=== PATIENT | female | born 1955 | race Caucasian/White ===

== ENCOUNTER 2019-01-05 23:43 | Emergency (ER) | payer MEDICARE, OTHER ==
--- OUTSIDE RECORDS SUMMARY | 2019-01-05 23:45 | XMS REPORT | Clinical Summary ---
:1955 Author Organization [facility] Address [address] [place] [address] Care Team Providers Name Role Phone Doug Benson Primary Care Provider Allergies No Known Allergies Medications Medication Sig Dispensed Refills Start Date End Date Status metoprolol tartrate Take 100 mg by 0 Active (LOPRESSOR) 100 mg mouth 2 (two) tablet times a day. olmesartan (BENICAR) 40 Take 40 mg by 0 Active MG tablet mouth daily. rivaroxaban (XARELTO) Take 20 mg by 0 Active 20 mg tablet mouth daily. esomeprazole (NexIUM) Take 40 mg by 0 Active 40 MG capsule mouth daily before breakfast. Active Problems Problem Noted Date Chronic right shoulder pain 12/18/2018 Rotator cuff arthropathy of right shoulder 12/18/2018 Encounters Date Type Specialty Care Team Description 12/27/2018 Prep for Surgery Orthopedic Surgery Daljit Carolina Rotator cuff MD Jose arthropathy of right shoulder (Primary Dx) 12/17/2018 Office Visit Orthopedic Surgery Daljit Carolina Chronic right shoulder pain (Primary Dx); MD Jose Rotator cuff arthropathy of right shoulder after 01/04/2018 Family History Relation Name Status Comments Father Mother Alive Social History Tobacco Use Types Packs/Day Years Used Date Never Smoker Smokeless Tobacco: Never Used Alcohol Use Drinks/Week oz/Week Comments Yes Sex Assigned at Date Recorded Not on file Job Start Date Occupation Industry Not on file Not on file Not on file Travel History Travel Start Travel End No recent travel history available. Last Filed Vital Signs Not on file Plan of Treatment Date Type Specialty Care Team Description 01/09/2019 Pre-Admit Testing Pre-Admission [place], [place] [address] [facility] [address] [place] [address] [phone] 01/16/2019 Hospital Encounter [place] [address] [place] [address] [phone] 01/16/2019 Anesthesia Event General Surgery Holley Dodd, STRATEGIC PLANNING SPECIALIST-C [address] [facility] [address] [place] [address] [phone] 01/16/2019 Surgery General Surgery Ge, Right shoulder Daljit Garcia [place] [address] [place] [address] [phone] 01/29/2019 Office Visit [place] [address] [place] [address] [phone] Health Maintenance Due Date Last Done Comments CERVICAL CANCER SCREENING 1974 BREAST CANCER SCREENING 12/22/2003 COLONOSCOPY SCREENING 12/22/2003 SHINGLES VACCINES (#1) 12/22/2003 INFLUENZA VACCINE 12/06/2018 65+ PNEUMOCOCCAL VACCINE (1 of 2 - PCV13) 2018 Procedures Procedure Name Priority Date/Time Associated Diagnosis Comments XR SHOULDER 2+ VW Routine 12/17/2018 1:17 PM Acute pain of right Results for this RIGHT CDT shoulder procedure are in the results section. after 01/04/2018 Results XR Shoulder 2+ Vw Right (12/17/2018 1:17 PM CDT) Specimen Narrative Performed At Indications: Right shoulder pain [facility] X-rays: Right shoulder 3 views show moderate to advanced rotator cuff arthropathy with high riding humeral head and evidence of wear of the undersurface of the acromion as well as moderate arthritis of the glenohumeral joint. Impression: Right shoulder rotator cuff arthropathy Performing Organization Address City/State/Zipcode Phone Number [facility] [address] [place] [address] after 01/04/2018 Advance Directives For more information, please contact: [phone] Type Date Recorded Patient Livery Car Driver Explanation Advance Directives, 02/12/2016 2:50 PM Living Will and Medical Power of [employer] Developer Advance Directives, 02/12/2016 2:52 PM Living Will and Medical Power of [employer] Developer
--- OUTSIDE RECORDS SUMMARY | 2019-01-05 23:48 | XMS REPORT | Continuity of Care Document ---
:1955 Author Organization [facility] Care Team Providers Name Role Phone [facility] Unavailable Unavailable Problems Problem Status Onset Classification Date Comments Source Date Reported Contusion of right 01/24/20 08/06/2018 [facility] thigh, initial 18 Hospital encounter SEPSIS Active 01/15/20 [facility] Other pulmonary 12/28/19 07/08/2018 [facility] embolism without 18 [facility] acute cor pulmonale SEPTIC SHOULDER Active 02/17/20 [facility] 16 [facility] RIGHT SHOULDER Active 12/03/19 [facility] ROTATOR CUFF TEAR 16 Hospital R10.9 - UNSPECIFIED Active 03/26/20 [facility] ABDOMINAL PAIN 15 [facility] FISH BONE STUCK IN Active 02/01/20 [facility] THROAT 15 Hospital PNEUMONIA Active 04/07/20 [facility] 14 [facility] FEVER, CHILLS, SORE Active 04/07/20 [facility] THROAT, ABD PAIN 14 Hospital DYSPNEA Active 02/08/20 [facility] 14 [facility] Urinary tract 08/06/2018 [facility] infection, site not Hospital specified Acute 08/06/2018 [facility] posthemorrhagic Hospital anemia Essential (primary) 08/06/2018 [facility] hypertension Hospital Chronic obstructive 08/06/2018 [facility] pulmonary disease, Hospital unspecified Chronic pain 08/06/2018 [facility] syndrome Hospital Pain in right thigh 08/06/2018 [facility] Disorder of kidney 08/06/2018 [facility] and ureter, Hospital unspecified Fall on same level 08/06/2018 [facility] from slipping, Hospital tripping and stumbling without subsequent striking against object, initial encounter USP (current) 08/06/2018 [facility] use of Hospital anticoagulants Arthritis Active Problem 09/25/2018 Medical (disorder) Group, [facility], [facility] Chronic obstructive Active Problem 09/25/2018 Medical lung disease Group, (disorder) [facility], [facility] Deep venous Resolved Problem 09/25/2018 Medical thrombosis Group, (disorder) [facility], [facility] Gastroesophageal Active Problem 09/25/2018 Medical reflux disease Group, (disorder) [facility], [facility] Hypertensive Active Problem 09/25/2018 Medical disorder, systemic Group, arterial (disorder) [facility], [facility] Morbid obesity Active Problem 09/25/2018 Medical (disorder) Group, [facility] Pneumonia Resolved Problem 09/25/2018 Medical (disorder) Group, OPID [facility], [facility] Pulmonary embolism Resolved Problem 09/25/2018 Medical (disorder) Group, [facility] Dyspnea on exertion Active Problem 09/25/2018 Medical (finding) Group, OPID [facility], [facility] Sleep apnea Active Problem 09/25/2018 Medical (finding) Group, OPID [facility], [facility] Other nonspecific 07/08/2018 [facility] abnormal finding of [facility] lung field PNEUMONIA, ORGANISM Active [facility] RESPIRATORY ABNORM Active [facility] UNSP ROTATR-CUFF Active [facility] TEAR/RUPTR OF RIGHT Hospital SNEHAL OTHER PULMONARY Active [facility] EMBOLISM WITHOUT Hospital ACUTE C ACUTE EMBOLISM AND Active [facility] THROMBOSIS OF LEFT Hospital TI STAPHYLOCOCCAL Active [facility] ARTHRITIS, RIGHT Hospital SHOULDER M00.111 Active [facility] Medications Medication Details Route Status Patient Ordering Order Source Instructions Provider Date Nitrofurantoin 100 100 mg=1 cap, No Longer MG Oral Capsule PO, BID, start Active 2018 [facility] [Macrobid] day prior to Group procedure, X 3 day, # 6 cap, 0 Refill(s), Pharmacy: [facility] Aspirin 0 Refill(s) Active 2018 [facility] ferrous sulfate 325 mg, PO, Active [facility] 325 MG Oral Tablet BID, # 60 tab, 2018 Hospital [Feosol] 0 Refill(s) cyclobenzaprine 10 10 mg=1 tab, No Longer [facility] mg oral tablet PO, TID, # 15 Active 2018 [facility] tab, 0 Refill(s) Docusate Sodium 100 mg=1 cap, Active [facility] 100 MG Oral PO, BID, # 60 2018 [facility] Capsule [Colace] cap, 0 Refill(s) Docusate Sodium 100 mg, 1 cap, No Longer [facility] 100 MG Oral Route: PO, Drug Active [address] [place] [address] Capsule [Colace] form: CAP, BID, Dosing Weight 130.455, kg, Start date: 01/16/18 21:12:00 CDT, Duration: 30 day, Stop date: 02/15/18 17:00:00 CDTNotes: (Same as: Colace) (Do Not Crush) Protonix 40 mg, 1 tab, No Longer [facility] Route: PO, Drug Active [address] [place] [address] form: ECTAB, Before Dinner, Start date: 01/15/18 16:30:00 CDT, Duration: 30 day, Stop date: 02/13/18 16:30:00 CDTNotes: Tablet should not be chewed or crushed. (Same as: Protonix) Dulera 200 mcg-5 2 inhalation, No Longer [facility] mcg/inh inhalation Route: PO, Drug Active [address] [place] [address] aerosol Form: AERO, Dosing Weight 130.455, kg, BID, Start date: 01/15/18 9:00:00 CDT, Duration: 30 day, Stop date: 02/13/18 17:00:00 CDT Nexium 40 mg, Route: No Longer [facility] PO, Daily, Active [address] [place] [address] Dosing Weight 130.455, kg, Start date: 01/15/18 9:00:00 CDT, Duration: 30 day, Stop date: 02/13/18 9:00:00 CDT Flexeril 10 mg, 1 tab, No Longer [facility] Route: PO, Drug [address] form: TAB, TID, Dosing Weight 130.455, kg, Start date: 01/15/18 9:00:00 CDT, Duration: 30 day, Stop date: 02/13/18 17:00:00 CDTNotes: (Same As: Flexeril) Xarelto 10 mg, 1 tab, Inactive [facility] Route: PO, Drug 2018 Hospital form: TAB, Q12H, Dosing Weight 130.455, kg, Start date: 01/15/18 9:00:00 CDT, Duration: 30 day, Stop date: 02/13/18 21:00:00 CDTNotes: (Same as: Xarelto) NS 1,000 mL 1,000 mL, Rate: No Longer [facility] 75 ml/hr, Active 2018 Hospital Infuse over: 13.3 hr, Route: IV, Dosing Weight 130.455 kg, Total Volume: 1,000, Start date: 01/15/18 8:27:00 CDT, Duration: 30 day, Stop date: 02/14/18 8:26:00 CDT, 2.54, m2 albuterol 2.49 mg, 3 mL, No Longer [facility] Route: NEB, Active 2018 Hospital Drug form: SOLN, RQ6H, Start date: 01/15/18 2:00:00 CDT, Duration: 30 day, Stop date: 02/13/18 20:00:00 CDTNotes: SEE RT DOCUMENTATION (Same as: Proventil) BD Normal Saline 25 mL, Route: No Longer [facility] Flush IV, Drug Form: [facility] 2017 [facility] INJ, PRN, PRN Line Flush, Start date: 01/15/18 1:45:00 CDT, Duration: 30 day, Stop date: 02/14/18 1:44:00 CDTNotes: (Same as: BD Posiflush) Tramadol 100 mg, 2 tab, No Longer [facility] Route: PO, Drug Active 2018 Hospital form: TAB, Q6H, Dosing Weight 130.455, kg, PRN Pain Score 6-10, Start date: 01/15/18 1:41:00 CDT, Duration: 30 day, Stop date: 02/14/18 1:40:00 CDT Pulmicort Respules 0.5 mg, 2 mL, No Longer [facility] Route: NEB, Active [facility] Drug form: SUSP, RQ12H, Start date: 01/14/18 21:20:00 CDT, Duration: 30 day, Stop date: 02/13/18 16:00:00 CDTNotes: (Same As: Pulmicort) cefTRIAXone + 1 gm, Route: No Longer [facility] sterile water 10 IV, [id number], Active [address] [place] [address] mL Start date: 01/14/18 21:00:00 CDT, Duration: 10 doses or times, Stop date: 01/23/18 21:00:00 CDT, ABX Indication: Genital Tract InfectionNotes: (Same As: Rocephin). Use with 100 mL NS and infuse over 30 min MEDICATION WASTE Product Size: 1000 mg Product Wasted: _0__ mg Rocephin 1 gm, Route: Inactive [facility] IVPB, Drug 2018 Hospital form: PDR/INJ, [id number], Dosing Weight 130.455, kg, Start date: 01/14/18 21:00:00 CDT, Duration: 10 day, Stop date: 01/23/18 21:00:00 CDT, ABX Indication: Genital Tract Infection Acetaminophen 325 2 tab, Route: No Longer [facility] MG / Hydrocodone PO, Drug Form: Active [address] [place] [address] Bitartrate 7.5 MG TAB, Dosing Oral Tablet [[place] Weight 130.455, 7.5/325] kg, Q6H, PRN Pain Score 7-10, Start date: 01/14/18 20:33:00 CDT, Duration: 30 day, Stop date: 02/13/18 20:32:00 CDTNotes: Same as [place] 325-7.5mg Do not exceed 4gm/day of acetaminophen. Ventolin HFA 90 2.49 mg, 3 mL, No Longer [facility] mcg/inh inhalation Route: NEB, Active 2018 [facility] aerosol with Drug Form: adapter SOLN, Dosing Weight 130.455, kg, RQ4H, PRN Wheezing, Start date: 01/14/18 20:30:00 CDT, Duration: 30 day, Stop date: 02/13/18 20:29:00 CDTNotes: SEE RT DOCUMENTATION (Same as: Proventil) NS + KCL 20mEq/L 1,000 mL, Rate: No Longer [facility] 1000ml (Premix) 100 ml/hr, Active 2018 Hospital 1,000 mL Infuse over: 10 hr, Route: IV, Dosing Weight 130.455 kg, Total Volume: 1,000, Start date: 01/14/18 20:09:00 CDT, Duration: 30 day, Stop date: 02/13/18 20:08:00 CDT, 2.54, [id number]: PREMIX IV - Do Not Alter WASTE: F/P - Sink; E - Municipal Trash [facility] Zithromax Z-Kevin See No Longer [facility] Instructions, Active 2018 Hospital PO 5 day, unkonwn dose, pt does not recall, 0 Refill(s) pneumococcal 0.5 mL, Route: No Longer [facility] capsular IM, Drug Form: Active 2018 [facility] polysaccharide INJ, ONCALL, type 1 vaccine / Start date: pneumococcal 01/14/18 capsular 20:03:43 CDT, polysaccharide Stop date: type 10A vaccine / 02/13/18 pneumococcal 19:58:43 capsular CDTNotes: (Same polysaccharide as: Pneumovax type 11A vaccine / 23) pneumococcal Refrigerate capsular polysaccharide type 12F vaccine / pneumococcal capsular polysacchar oxyCODONE 10 mg See Active [facility] extended release Instructions, 2018 Hospital 20 mg PO TID, 0 Refill(s) oxyCODONE 10 mg 10 mg=1 tab, Active [facility] oral tablet PO, TID, 0 2018 Hospital Refill(s) Acetaminophen 325 2 tab, PO, Q6H, Active [facility] MG / Hydrocodone # 160 tab, 0 2016 Hospital Bitartrate 10 MG Refill(s), Oral Tablet [[place] given to 10/325] patient hydromorphone 8 mg 8 mg=1 tab, PO, Active [facility] oral tablet Q8H, PRN Pain, 2016 Hospital X 7 day, # 90 tab, 0 Refill(s), given to patient [id number] mg 30 mg=3 tab, Active [facility] oral tablet, PO, Q8H, # 160 2016 Hospital extended release tab, 0 Refill(s), given to patient vancomycin 1 g 1 gm, IV, Q12H, Active [facility] intravenous X 90 day, # 1 2016 Hospital injection pkt, 0 Refill(s), other Ceftriaxone 1000 2 gm, IV, Q12H, Active [facility] Injection X 90 day, # 1 2016 Hospital [Rocephin] pkg, 1 Refill(s), other Saline Flush 0.9% 10 mL, Route: No Longer [facility] IVP, Drug Form: Active 2016 Hospital INJ, Dosing Weight 117.727, kg, Q8H, Start date: 02/22/16 16:00:00 CDT, Duration: 30 day, Stop date: 03/23/16 8:00:00 CSTNotes: (Same as: BD Posiflush) Saline Flush 0.9% 10 mL, Route: No Longer [facility] IVP, Drug Form: Active 2015 [facility] INJ, Dosing Weight 117.727, kg, PRN, PRN Line Flush, Start date: 02/22/16 10:41:00 CDT, Duration: 30 day, Stop date: 03/23/16 9:40:00 CSTNotes: (Same as: BD Posiflush) Heparin Lock 100 500 unit, 5 mL, No Longer [facility] units/mL INJ Route: INJ, Active 2015 Hospital solution Drug Form: SOLN, Dosing Weight 117.727, kg, PRN, PRN Other -See Comment, Packed PICC lumens, Start date: 02/22/16 10:41:00 CDT, Duration: 30 day, Stop date: 03/23/16 9:40:00 CSTNotes: (Same as: Heparin Lock Flush) metoprolol 100 mg, 2 tab, No Longer [facility] tartrate Route: PO, Drug Active 2015 Hospital form: TAB, Daily, Dosing Weight 117.727, kg, Start date: 02/21/16 9:00:00 CDT, Duration: 30 day, Stop date: 03/21/16 9:00:00 CSTNotes: (Same as: Lopressor) rivaroxaban 15 mg, 1 tab, No Longer [facility] Route: PO, Drug Active 2015 Hospital form: TAB, BID, Start date: 02/18/16 21:00:00 CDT, Duration: 16 day, Stop date: 03/05/16 9:00:00 CDTNotes: (Same as: Xarelto) Administer with food budesonide-formote 2 inhalation, No Longer [facility] rol 160 mcg-4.5 Route: Active [address] [place] [address] mcg/inh inhalation INHALATION, aerosol with Drug Form: adapter AERO/A, RBID, Start date: 02/18/16 17:39:00 CDT, Duration: 30 day, Stop date: 03/19/16 8:00:00 CSTNotes: (Same as: Symbicort) WASTE: Aerosol - Return to Pharmacy Xarelto 10 mg, Route: Inactive [facility] PO, Drug form: 2015 [facility] TAB, BID, Dosing Weight 117.727, kg, Start date: 02/18/16 17:00:00 CDT, Duration: 30 day, Stop date: 03/19/16 9:00:00 [employer] Protonix 40 mg, 1 tab, No Longer [facility] Route: PO, Drug Active 2015 [facility] form: ECTAB, Before Dinner, Start date: 02/18/16 16:30:00 CDT, Duration: 30 day, Stop date: 03/18/16 16:30:00 CSTNotes: Tablet should not be chewed or crushed. (Same as: Protonix) vancomycin + 1,500 mg, No Longer [facility] sodium chloride Route: IVPB, Active 2015 [facility] 0.9% 250 mL INJ [id number], Start (for IV set) 250 date: 02/18/16 mL 11:00:00 CDT, Duration: 30 day, Stop date: 03/19/16 1:00:00 CSTNotes: TIME CRITICAL MEDICATION (Same As: Vancocin) Infusion rate 2001 mg: infuse over 2.5 hours MEDICATION WASTE Product Size: 1000 mg Product Wasted: 0mg ePHEDrine (ANES) Route: IV, Drug Inactive [facility] form: INJ, 2015 [facility] ONCE, Stop date: 02/18/16 9:09:00 CDT neostigmine (ANES) Route: IV, Drug Inactive [facility] form: INJ, 2015 Hospital ONCE, Stop date: 02/18/16 9:09:00 CDT glycopyrrolate Route: IV, Drug Inactive [facility] (ANES) form: INJ, 2015 Hospital ONCE, Stop date: 02/18/16 9:09:00 CDT dexamethasone Route: IV, Drug Inactive [facility] (ANES) form: INJ, 2015 Hospital ONCE, Stop date: 02/18/16 9:04:00 CDT rocuronium (ANES) Route: IV, Drug Inactive [facility] form: INJ, 2015 Hospital ONCE, Stop date: 02/18/16 9:04:00 CDT ceFAZolin (ANES) Route: IV, Drug Inactive [facility] form: INJ, 2015 Hospital ONCE, Stop date: 02/18/16 9:04:00 CDT acetaminophen Route: IV, Drug Inactive [facility] (ANES) form: , 2015 Hospital ONCE, Stop date: 02/18/16 9:04:00 CDT midazolam (ANES) Route: IV, Drug Inactive [facility] form: SOLN, 2015 Hospital ONCE, Stop date: 02/18/16 9:04:00 CDT propofol (ANES) Route: IV, Drug Inactive [facility] form: INJ, 2015 Hospital ONCE, Stop date: 02/18/16 9:04:00 CDT fentaNYL (ANES) Route: IV, Drug Inactive 02/17/ MH [facility] form: INJ, 2015 Hospital ONCE, Stop date: 02/18/16 9:04:00 CDT hydrochlorothiazid 25 mg, 1 tab, No Longer [facility] e 25 mg oral Route: PO, Drug Active 2015 [facility] tablet form: TAB, Daily, Start date: 02/18/16 9:00:00 CDT, Duration: 30 day, Stop date: 03/18/16 9:00:00 CSTNotes: (Same as: Hydrodiuril) With food. Diovan 320 mg, 2 tab, No Longer [facility] Route: PO, Drug Active 2015 [facility] form: TAB, Daily, Start date: 02/18/16 9:00:00 CDT, Duration: 30 day, Stop date: 03/18/16 9:00:00 CSTNotes: Same as Diovan Docusate Sodium 100 mg, 1 cap, No Longer [facility] 100 MG Oral Route: PO, Drug Active 2015 [facility] Capsule form: CAP, BID, Dosing Weight 117.727, kg, Start date: 02/18/16 9:00:00 CDT, Duration: 30 day, Stop date: 03/18/16 17:00:00 CSTNotes: (Same as: Colace) (Do Not Crush) Nexium 40 mg, Route: No Longer [facility] PO, Daily, Active 2015 [facility] Dosing Weight 117.727, kg, Start date: 02/18/16 9:00:00 CDT, Duration: 30 day, Stop date: 03/18/16 9:00:00 [employer] Hydrochlorothiazid 1 tab, Route: No Longer [facility] e 25 MG / PO, Drug Form: Active 2015 [facility] valsartan 320 MG TAB, Dosing Oral Tablet Weight 117.727, kg, Daily, Start date: 02/18/16 9:00:00 CDT, Duration: 30 day, Stop date: 03/18/16 9:00:00 [employer] Ondansetron 4 mg, 2 mL, No Longer [facility] Route: IVP, Active 2015 [facility] Drug form: INJ, Q6H, Dosing Weight 117.727, kg, PRN Nausea & Vomiting, Start date: 02/18/16 8:59:00 CDT, Duration: 30 day, Stop date: 03/19/16 8:58:00 CSTNotes: (Same as: Zofran) MEDICATION WASTE Product Size: 4 mg Product Wasted: 0 mg Acetaminophen 325 2 tab, Route: No Longer [facility] MG / Hydrocodone PO, Drug Form: Active 2015 [facility] Bitartrate 10 MG TAB, Dosing Oral Tablet Weight 117.727, kg, Q4H, PRN Pain Score 4-6, Start date: 02/18/16 8:59:00 CDT, Duration: 30 day, Stop date: 03/19/16 8:58:00 CSTNotes: Do not exceed 4gm/day of acetaminophen. (Same as: [place] 325/10) Lactated Ringers 1,000 mL, Rate: No Longer [facility] 1,000 mL 75 ml/hr, Active 2015 Hospital Infuse over: 13.3 hr, Route: IV, Dosing Weight 117.727 kg, Total Volume: 1,000, Start date: 02/18/16 8:59:00 CDT, Duration: 30 day, Stop date: 03/19/16 8:58:00 [employer] Albuterol 0.83 2.49 mg, 3 mL, Inactive [facility] MG/ML Inhalant Route: NEB, 2015 [facility] Solution Drug form: SOLN, PRN, Dosing Weight 117.727, kg, PRN Respiratory Protocol, Start date: 02/18/16 8:24:00 CDT, Duration: 30 day, Stop date: 03/19/16 7:23:00 CSTNotes: SEE RT DOCUMENTATION (Same as: Proventil) Ondansetron 4 mg, 2 mL, Inactive [facility] Route: IVP2015 [facility] Drug form: INJ, ONCE, Dosing Weight 117.727, kg, PRN Nausea & Vomiting, Start date: 02/18/16 8:24:00 CDTNotes: (Same as: Zofran) MEDICATION WASTE Product Size: 4 mg Product Wasted: ___ mg Flumazenil 0.2 mg, 2 mL, Inactive [facility] Route: IVP2015 [facility] Drug form: INJ, PRN, Dosing Weight 117.727, kg, PRN Benzodiazepine Reversal, Initial dose, Start date: 02/18/16 8:24:00 CDT, Duration: 30 day, Stop date: 03/19/16 7:23:00 CSTNotes: (Same as: Romazicon) Naloxone 0.4 mg, 1 mL, Inactive [facility] Route: IVP2015 [facility] Drug form: INJ, Q2MIN, Dosing Weight 117.727, kg, PRN Narcotic Reversal, Start date: 02/18/16 8:24:00 CDT, Duration: 8 doses or times, Stop date: Limited # of timesNotes: Same as Narcan Hydromorphone 0.5 mg, 0.5 mL, Inactive [facility] Route: IVP, 2015 Hospital Drug form: INJ, Q5Min, Dosing Weight 117.727, kg, PRN Pain Score 7-10, Start date: 02/18/16 8:24:00 CDT, Duration: 4 doses or times, Stop date: Limited # of timesNotes: Same as: Dilaudid Morphine 2 mg, 1 mL, Inactive [facility] Route: IVP, 2015 Hospital Drug form: INJ, Q5Min, Dosing Weight 117.727, kg, PRN Pain Score 4-6, Start date: 02/18/16 8:24:00 CDT, Duration: 5 doses or times, Stop date: Limited # of timesNotes: (Same as:MORPhine Sulfate) Labetalol 10 mg, 2 mL, Inactive RIAZ Sy Route: IVP, 2015 [facility] Drug form: INJ, Q5Min, Dosing Weight 117.727, kg, PRN Elevated BP, Start date: 02/18/16 8:24:00 CDT, Duration: 5 doses or times, Stop date: Limited # of timesNotes: (Same as: Normodyne, Trandate) Push over 2 minutes Give bolus over 2-3 minutes. Hydralazine 10 mg, 0.5 mL, Inactive [facility] Sy Route: IVP, 2015 [facility] Drug form: INJ, Q20Min, Dosing Weight 117.727, kg, PRN Elevated BP, Start date: 02/18/16 8:24:00 CDT, Duration: 2 doses or times, Stop date: Limited # of timesNotes: (Same as: Apresoline) Push over 5 minutes LR 1000 mL INJ Route: IV, Inactive [facility] (ANES) Total Volume: 2016 Hospital 1,000, Start date: 02/18/16 7:43:00 CDT, Stop date: 02/18/16 8:43:00 CDT Hydromorphone 4 mg, 2 tab, No Longer [facility] Route: PO, Drug Active 2015 Hospital form: TAB, Q8H, Dosing Weight 117.727, kg, Start date: 02/18/16 0:00:00 CDT, Duration: 30 day, Stop date: 03/18/16 16:00:00 CSTNotes: (Same as: Dilaudid) vancomycin + 1,500 mg, No Longer [facility] sodium chloride Route: IVPB, Active 2016 [facility] 0.9% 250 mL INJ [id number], Start (for IV set) 250 date: 02/17/16 mL 21:00:00 CDT, Duration: 30 day, Stop date: 03/17/16 23:00:00 CSTNotes: TIME CRITICAL MEDICATION (Same As: Vancocin) Infusion rate 2001 mg: infuse over 2.5 hours MEDICATION WASTE Product Size: 1500 mg Product Wasted: _0__ mg metoprolol 100 mg, 2 tab, No Longer [facility] tartrate Route: PO, Drug Active 2015 Hospital form: TAB, BID, Dosing Weight 117.727, kg, Start date: 02/17/16 21:00:00 CDT, Duration: 30 day, Stop date: 03/18/16 9:00:00 CSTNotes: (Same as: Lopressor) Vancomycin 1 gm, Route: Inactive [facility] IV, Q12H, 2016 Hospital Dosing Weight 117.727, kg, Priority: NOW, Start date: 02/17/16 19:42:00 CDT, Duration: 30 day, Stop date: 03/18/16 9:00:00 [employer] Ceftriaxone 2 gm, Route: No Longer [facility] IV, Q24H, Active [address] [place] [address] Dosing Weight 117.727, kg, Priority: NOW, Start date: 02/17/16 19:41:00 CDT, Duration: 30 day, Stop date: 03/17/16 19:41:00 CSTNotes: (Same As: Rocephin). Use with 100 mL NS and infuse over 30 min MEDICATION WASTE Product Size: 2000 mg Product Wasted: _0__ mg Oxycontin 30 mg, 3 tab, No Longer [facility] Route: PO, Drug Active 2015 Hospital form: ERTAB, Q8H, Dosing Weight 117.727, kg, Start date: 02/17/16 19:17:00 CDT, Duration: 30 day, Stop date: 03/18/16 16:00:00 CSTNotes: Do not crush or chew. (Same as: OxyContin) Enoxaparin 40 mg, 0.4 mL, No Longer [facility] Route: SUB-Q, Active 2015 [facility] Drug form: INJ, [id number], Dosing Weight 117.727, kg, Consider for obese patients, Start date: 02/17/16 17:00:00 CDT, Duration: 30 day, Stop date: 03/18/16 5:00:00 CSTNotes: (Same as: Lovenox) Dulera 200 mcg-5 2 inhalation, No Longer [facility] mcg/inh inhalation Route: PO, Drug Active 2015 [facility] aerosol Form: AERO, Dosing Weight 117.727, kg, BID, Start date: 02/17/16 17:00:00 CDT, Duration: 30 day, Stop date: 03/18/16 9:00:00 [employer] Zofran 4 mg, 2 mL, No Longer [facility] Route: IVP, [facility] 2015 [facility] Drug form: INJ, Q8H, Dosing Weight 117.727, kg, PRN Nausea, Start date: 02/17/16 16:14:00 CDT, Duration: 30 day, Stop date: 03/18/16 16:13:00 CSTNotes: (Same as: Zofran) MEDICATION WASTE Product Size: 4 mg Product Wasted: _0__ mg Dilaudid 2 mg, 2 mL, No Longer [facility] Route: IVP, [facility] 2015 [facility] Drug form: INJ, Q3H, Dosing Weight 117.727, kg, PRN Pain Score 7-10, Start date: 02/17/16 16:11:00 CDT, Stop date: 03/18/16 16:10:00 CSTNotes: Same as: Dilaudid Ventolin HFA 90 2 puff, Route: No Longer [facility] mcg/inh inhalation INHALER, Drug Active 2015 [facility] aerosol with Form: AERO/A, adapter Dosing Weight 117.727, kg, RQ4H, PRN Wheezing, Start date: 02/17/16 16:09:00 CDT, Duration: 30 day, Stop date: 03/18/16 16:08:00 CSTNotes: Albuterol 90 microgram/inh 8gm HFA WASTE: Aerosol - Return to Pharmacy Same as: Ventolin, Proventil rivaroxaban 10 MG 10 mg=1 tab, Active [facility] Oral Tablet PO, BID, 0 2015 [facility] [Xarelto] Refill(s) Hydromorphone 4 mg, PO, TID, No Longer [facility] 0 Refill(s) Active 2015 [facility] Oxycodone 5 mg, Route: Inactive [facility] NG, Drug form: 2015 [facility] TAB, ONCE, Dosing Weight 117.5, kg, PRN Pain Score 4-6, Priority: NOW, Start date: 12/17/15 10:22:00 CDT, Stop date: 01/16/16 10:21:00 CDT Ativan 1 mg, 0.5 mL, Inactive [facility] Route: IVP, 2015 [facility] Drug form: INJ, ONCE, Dosing Weight 117.5, kg, PRN Anxiety, Start date: 12/17/15 9:34:00 CDTNotes: (Same as: Ativan) ondansetron (ANES) Route: IV, Drug Inactive [facility] form: INJ, 2015 [facility] ONCE, Stop date: 12/17/15 9:24:00 CDT ePHEDrine (ANES) Route: IV, Drug Inactive [facility] form: INJ, 2015 [facility] ONCE, Stop date: 12/17/15 8:41:00 CDT dexamethasone Route: IV, Drug Inactive [facility] (ANES) form: INJ, 2015 [facility] ONCE, Stop date: 12/17/15 8:36:00 CDT propofol (ANES) Route: IV, Drug Inactive [facility] form: INJ, 2015 [facility] ONCE, Stop date: 12/17/15 8:36:00 CDT fentaNYL (ANES) Route: IV, Drug Inactive [facility] form: INJ, 2016 [facility] ONCE, Stop date: 12/17/15 8:36:00 CDT phenylephrine Route: IV, Drug Inactive [facility] (ANES) form: INJ, 2015 [facility] ONCE, Stop date: 12/17/15 8:36:00 CDT succinylcholine Route: IV, Drug Inactive [facility] (ANES) form: INJ, 2016 [facility] ONCE, Stop date: 12/17/15 8:31:00 CDT rocuronium (ANES) Route: IV, Drug Inactive [facility] form: INJ, 2016 [facility] ONCE, Stop date: 12/17/15 8:31:00 CDT ceFAZolin (ANES) Route: IV, Drug Inactive [facility] form: INJ, 2016 Hospital ONCE, Stop date: 12/17/15 8:31:00 CDT Albuterol 0.83 2.49 mg, 3 mL, Inactive [facility] MG/ML Inhalant Route: NEB, 2016 [facility] Drug form: SOLN, PRN, Dosing Weight 117.5, kg, PRN Respiratory Protocol, Start date: 12/17/15 8:09:00 CDT, Duration: 30 day, Stop date: 01/16/16 8:08:00 CDTNotes: SEE RT DOCUMENTATION (Same as: Proventil) Flumazenil 0.2 mg, 2 mL, Inactive [facility] Route: IVP, 2015 [facility] Drug form: INJ, PRN, Dosing Weight 117.5, kg, PRN Benzodiazepine Reversal, Initial dose, Start date: 12/17/15 8:09:00 CDT, Duration: 30 day, Stop date: 01/16/16 8:08:00 CDTNotes: (Same as: Romazicon) Naloxone 0.4 mg, 1 mL, Inactive [facility] Route: IVP2015 [facility] Drug form: INJ, Q2MIN, Dosing Weight 117.5, kg, PRN Narcotic Reversal, Start date: 12/17/15 8:09:00 CDT, Duration: 8 doses or times, Stop date: Limited # of timesNotes: Same as Narcan Ondansetron 4 mg, 2 mL, Inactive [facility] Route: IVP, 2015 Hospital Drug form: INJ, ONCE, Dosing Weight 117.5, kg, PRN Nausea & Vomiting, Start date: 12/17/15 8:09:00 CDTNotes: (Same as: Zofran) MEDICATION WASTE Product Size: 4 mg Product Wasted: _0__ mg Diphenhydramine 12.5 mg, 0.25 Inactive [facility] mL, Route: IVP, 2015 Hospital Drug form: INJ, Q6H, Dosing Weight 117.5, kg, PRN Itching, Start date: 12/17/15 8:09:00 CDT, Duration: 30 day, Stop date: 01/16/16 8:08:00 CDTNotes: (Same as: Benadryl) Labetalol 10 mg, 2 mL, Inactive [facility] Route: IVP, 2015 Hospital Drug form: INJ, Q5Min, Dosing Weight 117.5, kg, PRN Elevated BP, Start date: 12/17/15 8:09:00 CDT, Duration: 5 doses or times, Stop date: Limited # of timesNotes: (Same as: Normodyne, Trandate) Push over 2 minutes Give bolus over 2-3 minutes. Hydralazine 10 mg, 0.5 mL, Inactive [facility] Route: IVP, 2015 Hospital Drug form: INJ, Q20Min, Dosing Weight 117.5, kg, PRN Elevated BP, Start date: 12/17/15 8:09:00 CDT, Duration: 2 doses or times, Stop date: Limited # of timesNotes: (Same as: Apresoline) Push over 5 minutes Morphine 2 mg, 1 mL, Inactive [facility] Route: IVP, 2015 Hospital Drug form: INJ, Q5Min, Dosing Weight 117.5, kg, PRN Pain Score 4-6, Start date: 12/17/15 8:09:00 CDT, Duration: 5 doses or times, Stop date: Limited # of timesNotes: (Same as:MORPhine Sulfate) Hydromorphone 0.5 mg, 0.5 mL, Inactive [facility] Route: IVP, 2015 Hospital Drug form: INJ, Q5Min, Dosing Weight 117.5, kg, PRN Pain Score 7-10, Start date: 12/17/15 8:09:00 CDT, Duration: 4 doses or times, Stop date: Limited # of timesNotes: Same as: Dilaudid acetaminophen Route: IV, Drug Inactive [facility] (ANES) (ANES) form: INJ, 2015 Hospital Start date: 12/17/15 8:04:00 CDT, Stop date: 12/17/15 9:04:00 CDT LR 1000 mL INJ Route: IV, Inactive eKrrie (ANES) Total Volume: [address] [place] [address] 1,000, Start date: 12/17/15 7:36:00 CDT, Stop date: 12/17/15 8:36:00 CDT BD Normal Saline 10 mL, Route: Inactive [facility] Flush IV, Drug Form: [address] [place] [address] INJ, PRN, PRN Line Flush, Start date: 12/17/15 6:00:00 CDT, Duration: 1 day, Stop date: 12/18/15 5:59:00 CDTNotes: (Same as: BD Posiflush) Lidocaine 0.1 mL, Route: Inactive [facility] INTRADERM, [address] [place] [address] Dosing Weight 117.5, kg, ONCALL, Start date: 12/17/15 6:00:00 CDT, Duration: 1 doses or times ceFAZolin 2 gm, 100 mL, Inactive [facility] Route: IVPB, [address] [place] [address] Drug form: INJ, PRE OP, Start date: 12/17/15 6:00:00 CDT, Duration: 1 day, Stop date: 12/18/15 5:59:00 CDTNotes: Same as: Ancef Sodium Chloride 25 mL, Route: Inactive [facility] 0.9% IV IV, Start date: [address] [place] [address] 12/17/15 6:00:00 CDT, Duration: 1 day, Stop date: 12/18/15 5:59:00 CDT, PRN Line Flush Calcium Chloride 1,000 mL, Rate: Inactive [facility] 0.0014 MEQ/ML / 25 ml/hr, [address] [place] [address] Potassium Chloride Infuse over: 40 0.004 MEQ/ML / hr, Route: IV, Sodium Chloride Dosing Weight 0.103 MEQ/ML / 117.5 kg, Total Sodium Lactate Volume: 1,000, 0.028 MEQ/ML Start date: Injectable 12/17/15 Solution 5:58:00 CDT, Duration: 30 day, Stop date: 01/16/16 5:57:00 CDT Ventolin HFA 90 2 puff, Active [facility] mcg/inh inhalation INHALER, Q4H, 2016 Hospital aerosol with PRN wheezing, adapter coughing, or shortness of breath, # 8 gm, 1 Refill(s) 12 HR Oxycodone 30 mg=1 tab, Active [facility] Hydrochloride 30 PO, TID, 0 2016 Hospital MG Extended Refill(s) Release Tablet [Oxycontin] Probiotic Formula 1 cap, PO, Active 12/10[facility] oral capsule Daily, 0 2015 Hospital Refill(s) Hydrochlorothiazid 1 tab, PO, Active 12/10[facility] e 25 MG / Daily, # 30 2016 Hospital valsartan 320 MG tab, 0 Oral Tablet Refill(s) Allergies, Adverse Reactions, Alerts Substance Category Reaction Severity Reaction Status Date Comments Source type Reported Cleocin HCl Assertion Itching, Drug Active [facility] Abdominal allergy Hospital pain No Known Assertion Drug Medication allergy Medical Allergies Group Immunizations No Data Provided for This Section Results Order Name Results Value Reference Date Interpretation Comments Source Range ELECTROLYTE AGAP 10.4 10.0 - 01/17 [facility] S 20.0 Hospital ELECTROLYTE eGFR 89 01/17 Result [facility] Comment: The Hospital eGFR is calculated using the CKD-EPI formula. In most young, healthy individuals the eGFR will be >90 mL/min/1.73m2 . The eGFR declines with age. An eGFR of 60-89 may be normal in some populations, particularly the elderly, for whom the CKD-EPI formula has not been extensively validated. Use of the eGFR is not recommended in the following populations:< br/>
Cassie viduals with unstable creatinine concentration s, including patients and those with serious co-morbid conditions.<b r/>
Patie nts with extremes in muscle mass or diet.

The data above are obtained from the National Kidney Disease Education Program (NKDEP) which additionally recommends that when the eGFR is used in patients with extremes of body mass index for purposes of drug dosing, the eGFR should be multiplied by the estimated BMI. ELECTROLYTE Calcium Lvl 8.3 8.5 - 10.5 01/17 [facility] ELECTROLYTE Creatinine 0.72 0.50 - 01/17 [facility] Lvl 1.40 [facility] ELECTROLYTE Sodium Lvl 137 135 - 145 09/ [facility] ELECTROLYTE Chloride Lvl 105 95 - 109 01/17 [facility] ELECTROLYTE Potassium 4.4 3.5 - 5.1 09 [facility] Lvl [facility] ELECTROLYTE BUN 20 7 - 22 01/17 [facility] ELECTROLYTE Glucose Lvl 103 70 - 99 / [facility] ELECTROLYTE CO2 26 24 - 32 09/ [facility] HEMATOLOGY RDW 14.0 11.5 - 09 [facility] 14.5 [facility] HEMATOLOGY MCHC 34.2 32.0 - 09 [facility] 36.0 [facility] HEMATOLOGY MCH 32.4 27.0 - 09 [facility] 31.0 [facility] HEMATOLOGY Platelet 183 133 - 450 09 [facility] HEMATOLOGY MPV 8.7 7.4 - 10.4 09 [facility] HEMATOLOGY Hct 25.1 36.0 - 09 [facility] 48.0 [facility] HEMATOLOGY MCV 94.9 80.0 - 09 [facility] 98.0 [facility] HEMATOLOGY RBC 2.64 4.20 - 01/17 [facility] 5.40 [facility] HEMATOLOGY Hgb 8.6 12.0 - 01/17 [facility] 16.0 [facility] HEMATOLOGY WBC 7.4 3.7 - 10.4 01/17 [facility] HEMATOLOGY Basophils # 0.1 0.0 - 0.2 01/17 [facility] HEMATOLOGY Eosinophils 0.2 0.0 - 0.5 01/17 [facility] # /2017 [facility] HEMATOLOGY Eosinophils 2.8 0.0 - 4.0 09 [facility] HEMATOLOGY Basophils 1.3 0.0 - 1.0 09 [facility] HEMATOLOGY Monocytes 11.1 2.0 - 12.0 01/17 [facility] HEMATOLOGY Segs 58.1 45.0 - 09 [facility] 75.0 [facility] HEMATOLOGY Lymphocytes 26.7 20.0 - 0912 [facility] 40.0 [facility] HEMATOLOGY Monocytes # 0.8 0.0 - 0.8 09 [facility] HEMATOLOGY Lymphocytes 2.0 1.0 - 5.5 09 [facility] # /2017 Hospital HEMATOLOGY Neutrophils 4.3 1.5 - 8.1 01/17 [facility] # /2017 Hospital BLOOD BANK Antibody Negative 01/16 [facility] RESULTS Scrn (01/16/18 9:34 AM) /2017 Hospital BLOOD BANK ABO/Rh O NEG 01/16 [facility] RESULTS /2017 Hospital CHEM PANEL eGFR 74 01/16 Result Comment: The Hospital eGFR is calculated using the CKD-EPI formula. In most young, healthy individuals the eGFR will be >90 mL/min/1.73m2 . The eGFR declines with age. An eGFR of 60-89 may be normal in some populations, particularly the elderly, for whom the CKD-EPI formula has not been extensively validated. Use of the eGFR is not recommended in the following populations:< br/>
Cassie viduals with unstable creatinine concentration s, including patients and those with serious co-morbid conditions.<b r/>
Patie nts with extremes in muscle mass or diet.

The data above are obtained from the National Kidney Disease Education Program (NKDEP) which additionally recommends that when the eGFR is used in patients with extremes of body mass index for purposes of drug dosing, the eGFR should be multiplied by the estimated BMI. CHEM PANEL CO2 26 24 - 32 01/16 Hospital CHEM PANEL Calcium Lvl 8.5 8.5 - 10.5 01/16 Hospital CHEM PANEL Chloride Lvl 107 95 - 109 01/16 Hospital CHEM PANEL Glucose Lvl 109 70 - 99 01/16 Hospital CHEM PANEL BUN 28 7 - 22 01/16 Hospital CHEM PANEL Potassium 4.0 3.5 - 5.1 01/16 [facility] Lvl /2017 Hospital CHEM PANEL Creatinine 0.84 0.50 - 01/16 [facility] Lvl 1.40 [facility] CHEM PANEL Sodium Lvl 141 135 - 145 01/16 Hospital CHEM PANEL AGAP 12.0 10.0 - 01/16 [facility] 20.0 [facility] HEMATOLOGY MPV 9.0 7.4 - 10.4 01/16 Hospital HEMATOLOGY Platelet 178 133 - 450 01/16 [facility] /2018 Hospital HEMATOLOGY RDW 13.7 11.5 - 09/11 [facility] 14.5 /2018 Hospital HEMATOLOGY Hct 24.8 36.0 - 09/11 [facility] 48.0 /2018 Hospital HEMATOLOGY MCV 94.4 80.0 - 09/11 [facility] 98.0 /2018 Hospital HEMATOLOGY Hgb 8.7 12.0 - 09/11 [facility] 16.0 /2017 Hospital HEMATOLOGY WBC 8.1 3.7 - 10.4 09/11 [facility] /2018 Hospital HEMATOLOGY RBC 2.63 4.20 - 09/11 [facility] 5.40 /2017 Hospital HEMATOLOGY MCH 33.1 27.0 - 09/11 [facility] 31.0 /2017 Hospital HEMATOLOGY MCHC 35.1 32.0 - 09/11 [facility] 36.0 /2018 Hospital HEMATOLOGY Basophils # 0.1 0.0 - 0.2 09/11 [facility] /2018 Hospital HEMATOLOGY Basophils 0.6 0.0 - 1.0 09/11 [facility] /2018 Hospital HEMATOLOGY Neutrophils 5.3 1.5 - 8.1 09/11 [facility] # /2018 Hospital HEMATOLOGY Lymphocytes 1.8 1.0 - 5.5 09/ MH [facility] # /2018 Hospital HEMATOLOGY Monocytes # 0.8 0.0 - 0.8 09/11 [facility] /2018 Hospital HEMATOLOGY Eosinophils 0.1 0.0 - 0.5 09/11 [facility] # /2018 Hospital HEMATOLOGY Segs 65.7 45.0 - 09/11 MH [facility] 75.0 /2017 Hospital HEMATOLOGY Monocytes 10.5 2.0 - 12.0 09/11 [facility] /2018 Hospital HEMATOLOGY Lymphocytes 21.6 20.0 - 09/11 MH [facility] 40.0 2018 Hospital HEMATOLOGY Eosinophils 1.6 0.0 - 4.0 09/11 [facility] /2018 Hospital HEMATOLOGY Hct 26.6 36.0 - 09/10 [facility] 48.0 /2018 Hospital HEMATOLOGY Hgb 9.2 12.0 - 09/10 [facility] 16.0 /2018 Hospital ELECTROLYTE AGAP 10.2 10.0 - 09/10 [facility] S 20.0 Hospital ELECTROLYTE eGFR 39 09/ Result [facility] S /2017 Comment: The Hospital eGFR is calculated using the CKD-EPI formula. In most young, healthy individuals the eGFR will be >90 mL/min/1.73m2 . The eGFR declines with age. An eGFR of 60-89 may be normal in some populations, particularly the elderly, for whom the CKD-EPI formula has not been extensively validated. Use of the eGFR is not recommended in the following populations:< br/>
Cassie viduals with unstable creatinine concentration s, including patients and those with serious co-morbid conditions.<b r/>
Patie nts with extremes in muscle mass or diet.

The data above are obtained from the National Kidney Disease Education Program (NKDEP) which additionally recommends that when the eGFR is used in patients with extremes of body mass index for purposes of drug dosing, the eGFR should be multiplied by the estimated BMI. ELECTROLYTE Glucose Lvl 110 70 - 99 01/15 [facility] S [facility] ELECTROLYTE BUN 42 7 - 22 01/15 [facility] S [facility] ELECTROLYTE Creatinine 1.41 0.50 - 01/15 [facility] S Lvl 1.40 Hospital ELECTROLYTE Sodium Lvl 138 135 - 145 01/15 [facility] ELECTROLYTE CO2 27 24 - 32 01/15 [facility] S [facility] ELECTROLYTE Calcium Lvl 8.5 8.5 - 10.5 01/15 [facility] S [facility] ELECTROLYTE Potassium 4.2 3.5 - 5.1 01/15 [facility] ELECTROLYTE Chloride Lvl 105 95 - 109 01/15 [facility] S [facility] HEMATOLOGY MPV 8.4 7.4 - 10.4 01/15 [facility] HEMATOLOGY Platelet 188 133 - 450 01/15 [facility] HEMATOLOGY RDW 13.9 11.5 - 01/15 [facility] 14.5 [facility] HEMATOLOGY MCV 94.0 80.0 - 01/15 [facility] 98.0 [facility] HEMATOLOGY MCHC 34.6 32.0 - 09 [facility] 36.0 Hospital HEMATOLOGY MCH 32.5 27.0 - 01/15 [facility] 31.0 [facility] HEMATOLOGY WBC 9.4 3.7 - 10.4 01/15 [facility] HEMATOLOGY RBC 2.90 4.20 - 01/15 [facility] 5.40 [facility] HEMATOLOGY Eosinophils 0.1 0.0 - 0.5 09/10 [facility] # /2017 Hospital HEMATOLOGY Monocytes # 0.9 0.0 - 0.8 01/15 [facility] /2017 Hospital HEMATOLOGY Basophils 0.5 0.0 - 1.0 01/15 MH [facility] /2017 Hospital HEMATOLOGY Eosinophils 0.9 0.0 - 4.0 01/15 [facility] /2017 [facility] HEMATOLOGY Monocytes 9.4 2.0 - 12.0 01/15 MH [facility] /2018 Hospital HEMATOLOGY Lymphocytes 1.8 1.0 - 5.5 01/15 [facility] # /2018 Hospital HEMATOLOGY Neutrophils 6.6 1.5 - 8.1 01/15 [facility] # /2017 [facility] HEMATOLOGY Lymphocytes 19.5 20.0 - 01/15 [facility] 40.0 [facility] HEMATOLOGY Segs 69.7 45.0 - 01/15 [facility] 75.0 [facility] HEMATOLOGY PT 18.0 12.0 - 01/15 [facility] 14.7 [facility] HEMATOLOGY INR 1.48 0.85 - 01/15 [facility] 1.17 [facility] URINE AND UA <=1.0 0.1 - 1.0 01/15 [facility] STOOL Urobilinogen mg/dL /2017 [facility] URINE AND UA Color Cecilia Yellow 01/15 [facility] STOOL *ABN* /2017 [facility] (01/14/18 9:00 PM) URINE AND UA Turbidity Marked Clear 01/15 [facility] STOOL *ABN* /2017 [facility] (01/14/18 9:00 PM) URINE AND UA Spec Grav 1.021 <=1.030 01/15 [facility] STOOL /2017 [facility] URINE AND UA Nitrite Negative Negative 01/15 [facility]OOL (01/14/18 9:00 PM) /2017 Hospital URINE AND UA Bili Negative Negative 01/15 [facility] STOOL *NA* /2017 [facility] (01/14/18 9:00 PM) URINE AND UA Blood Negative Negative 01/15 [facility] STOOL (01/14/18 9:00 PM) /2017 Hospital URINE AND UA Glucose Negative Negative 01/15 [facility] STOOL mg/dL mg/dL /2017 Hospital URINE AND UA Ketones Negative Negative 01/15 [facility] STOOL mg/dL mg/dL /2017 Hospital URINE AND UA pH 5.0 5.0 - 8.0 01/15 [facility] STOOL /2017 Hospital URINE AND UA Protein 30 mg/dL Negative 01/15 [facility] STOOL mg/dL /2017 Hospital URINE AND UA Hyal Cast 30 0 - 2 01/15 [facility] STOOL Hospital URINE AND UA Sq Epi Many /LPF Few /LPF 01/15 [facility] STOOL Hospital URINE AND UA WBC 3 0 - 5 01/15 [facility] STOOL /2017 Hospital URINE AND UA RBC 1 0 - 2 01/15 [facility] STOOL Hospital URINE AND UA Leuk Est Negative Negative 01/15 [facility] (01/14/18 9:00 PM) /2017 Hospital URINE AND UA Bacteria Occasional None Seen 01/15 [facility] STOOL /HPF /HPF /2017 Hospital URINE AND UA Mucus Few /LPF None Seen 01/15 [facility] STOOL /LPF /2017 [facility] TOXICOLOGY Vanco Tr 17.5 02/19 [facility] TOXICOLOGY Vanco Tr TND 2200 02/19 [facility] HEMATOLOGY WBC 10.3 3.7 - 10.4 02/18 [facility] HEMATOLOGY Hgb 12.4 12.0 - 02/18 [facility] 16.0 [facility] HEMATOLOGY Hct 36.4 36.0 - 10 [facility] 48.0 [facility] HEMATOLOGY MCV 94.6 80.0 - 02/18 [facility] 98.0 [facility] HEMATOLOGY RBC 3.84 4.20 - 02/18 [facility] 5.40 [facility] HEMATOLOGY MCH 32.1 27.0 - 02/18 [facility] 31.0 [facility] HEMATOLOGY MPV 8.7 7.4 - 10.4 02/18 [facility] HEMATOLOGY MCHC 34.0 32.0 - 02/18 [facility] 36.0 [facility] HEMATOLOGY RDW 14.6 11.5 - 10 [facility] 14.5 [facility] HEMATOLOGY Platelet 230 133 - 450 02/18 [facility] HEMATOLOGY Eosinophils 0.1 0.0 - 0.5 02/18 [facility] # /2015 Hospital HEMATOLOGY Basophils # 0.1 0.0 - 0.2 02/18 [facility] /2015 Hospital HEMATOLOGY Monocytes 10.8 2.0 - 12.0 02/18 [facility] /2015 Hospital HEMATOLOGY Segs 64.4 45.0 - 02/18 [facility] 75.0 Hospital HEMATOLOGY Lymphocytes 22.6 20.0 - 10 [facility] 40.0 /2016 [facility] HEMATOLOGY Eosinophils 1.3 0.0 - 4.0 02/18 [facility] HEMATOLOGY Segs-Bands # 6.6 1.5 - 8.1 02/18 [facility] HEMATOLOGY Lymphocytes 2.3 1.0 - 5.5 02/18 [facility] # /2015 Hospital HEMATOLOGY Monocytes # 1.1 0.0 - 0.8 02/18 Hospital HEMATOLOGY Basophils 0.9 0.0 - 1.0 02/18 Hospital CHEM PANEL Calcium Lvl 8.9 8.5 - 10.5 02/18 Hospital CHEM PANEL AGAP 10.6 10.0 - 02/18 [facility] 20.0 [facility] CHEM PANEL Potassium 3.6 3.5 - 5.1 02/18 [facility] CHEM PANEL CO2 27 24 - 32 02/18 Hospital CHEM PANEL Chloride Lvl 101 95 - 109 02/18 Hospital CHEM PANEL Glucose Lvl 125 70 - 99 02/18 Hospital CHEM PANEL eGFR 96 02/18 Comment: The Hospital eGFR is calculated using the CKD-EPI formula. In most young, healthy individuals the eGFR will be >90 mL/min/1.73m2 . The eGFR declines with age. An eGFR of 60-89 may be normal in some populations, particularly the elderly, for whom the CKD-EPI formula has not been extensively validated. Use of the eGFR is not recommended in the following populations:< br/>
Cassie viduals with unstable creatinine concentration s, including patients and those with serious co-morbid conditions.<b r/>
Patie nts with extremes in muscle mass or diet.

The data above are obtained from the National Kidney Disease Education Program (NKDEP) which additionally recommends that when the eGFR is used in patients with extremes of body mass index for purposes of drug dosing, the eGFR should be multiplied by the estimated BMI. CHEM PANEL Sodium Lvl 135 135 - 145 02/18 Hospital CHEM PANEL Creatinine 0.64 0.50 - 02/18 [facility] Lvl 1.40 [facility] CHEM PANEL BUN 11 7 - 22 02/18 Hospital IMMUNOLOGY C-REACTIVE 40.9 <=2.9 mg/L 02/18 [facility] CHEM PANEL Magnesium 1.6 1.8 - 2.4 02/16 Lvl Hospital CHEM PANEL eGFR 95 02/16 [facility] Comment: The Hospital eGFR is calculated using the CKD-EPI formula. In most young, healthy individuals the eGFR will be >90 mL/min/1.73m2 . The eGFR declines with age. An eGFR of 60-89 may be normal in some populations, particularly the elderly, for whom the CKD-EPI formula has not been extensively validated. Use of the eGFR is not recommended in the following populations:< br/>
Cassie viduals with unstable creatinine concentration s, including patients and those with serious co-morbid conditions.<b r/>
Patie nts with extremes in muscle mass or diet.

The data above are obtained from the National Kidney Disease Education Program (NKDEP) which additionally recommends that when the eGFR is used in patients with extremes of body mass index for purposes of drug dosing, the eGFR should be multiplied by the estimated BMI. CHEM PANEL Bili Total 0.7 0.2 - 1.3 02/16 Hospital CHEM PANEL ALT 82 0 - 65 02/16 Hospital CHEM PANEL Alk Phos 169 39 - 136 02/16 Hospital CHEM PANEL Albumin Lvl 3.2 3.5 - 5.0 02/16 Hospital CHEM PANEL AST 41 0 - 37 02/16 Hospital CHEM PANEL Total 7.1 6.4 - 8.4 02/16 [facility] CHEM PANEL Sodium Lvl 135 135 - 145 02/16 Hospital CHEM PANEL Chloride Lvl 101 95 - 109 02/16 Hospital CHEM PANEL Potassium 3.9 3.5 - 5.1 02/16l Hospital CHEM PANEL CO2 28 24 - 32 02/16 Hospital CHEM PANEL Calcium Lvl 9.0 8.5 - 10.5 02/16 Hospital CHEM PANEL Creatinine 0.67 0.50 - 02/16 [facility] Lvl 1.40 [facility] CHEM PANEL BUN 13 7 - 22 10/ Ker[facility] /2015 Hospital CHEM PANEL Glucose Lvl 119 70 - 99 10 [facility] CHEM PANEL A/G Ratio 0.8 0.7 - 1.6 10/ Ker[facility] /2015 [facility] CHEM PANEL B/C Ratio 19 6 - 25 10/ Ker[facility] /2015 [facility] CHEM PANEL AGAP 9.9 10.0 - 10 [facility] 20.0 Hospital CHEM PANEL Globulin 3.9 2.7 - 4.2 10/ [facility] /2015 Hospital HEMATOLOGY Basophils # 0.1 0.0 - 0.2 10 [facility] HEMATOLOGY Basophils 0.6 0.0 - 1.0 10 [facility] HEMATOLOGY Monocytes 15.1 2.0 - 12.0 02/16 [facility] /2015 Hospital HEMATOLOGY Lymphocytes 15.8 20.0 - 10 [facility] 40.0 [facility] HEMATOLOGY Eosinophils 0.8 0.0 - 4.0 02/16 [facility] HEMATOLOGY Segs 67.7 45.0 - 10 [facility] 75.0 [facility] HEMATOLOGY Lymphocytes 1.6 1.0 - 5.5 02/16 [facility] # /2015 Hospital HEMATOLOGY Segs-Bands # 6.8 1.5 - 8.1 02/16 [facility] /2015 Hospital HEMATOLOGY Monocytes # 1.5 0.0 - 0.8 02/16 [facility] /2015 Hospital HEMATOLOGY Eosinophils 0.1 0.0 - 0.5 02/16 [facility] # /2015 Hospital HEMATOLOGY Hgb 14.5 12.0 - 02/16 [facility] 16.0 [facility] HEMATOLOGY Hct 43.1 36.0 - 10 [facility] 48.0 /2015 Hospital HEMATOLOGY MCH 32.0 27.0 - 10 [facility] 31.0 [facility] HEMATOLOGY MCV 94.9 80.0 - 10 [facility] 98.0 [facility] HEMATOLOGY MCHC 33.7 32.0 - 10 [facility] 36.0 /2015 Hospital HEMATOLOGY MPV 8.6 7.4 - 10.4 10 [facility] HEMATOLOGY RDW 14.6 11.5 - 10 [facility] 14.5 [facility] HEMATOLOGY Platelet 258 133 - 450 10 [facility] HEMATOLOGY RBC 4.54 4.20 - 02/[facility] HEMATOLOGY WBC 10.1 3.7 - 10.4 02/16 [facility] HEMATOLOGY PTT 32.9 22.9 - 02/16 [facility] 35.8 /2015 [facility] Pathology Reports No Data Provided for This Section Diagnostic Reports Report Value Date Source Abdomen/Pelvis wo IV UNENHANCED CT OF THE ABDOMEN AND PELVIS 01/15/2018 [facility] contrast CT CLINICAL INDICATION: - R/O RETROPERITONEAL BLEED, RECENT FALL, ON XARELTO, SEVERE BACK, RIGHT HIP AND RIGHT THIGH PAIN. TECHNIQUE: Unenhanced CT of the abdomen and pelvis was performed with multiplanar reconstructions. The dose length product is 1089 mGy-cm. COMPARISON: CT abdomen and pelvis 03/31/2015. FINDINGS: There is no acute osseous fracture or dislocation. There are chronic surgical changes of laminectomy and posterior fusion at L4-L5. There are intervertebral cages from L4-S1. There is an incompletely imaged 4.9 x 10.5 x 13 cm hematoma within the right lateral hip musculature overlying the greater trochanter and extending into the lateral proximal thigh musculature. There is no intra-abdominal or retroperitoneal hemorrhage. There is a small fat filled, noninflamed right inguinal hernia. There is a mild burden of atherosclerotic calcification of the aorta. There is no aortic aneurysm. The inferior vena cava appears normal. The imaged heart and lung bases reveal no acute process. There is no acute hepatic process. The gallbladder is absent. The pancreas reveals no acute process. The spleen reveals no acute process. The adrenal glands reveal no mass or acute process. There is symmetric stable mild to moderate perinephric fat stranding. There is no hydronephrosis or evidence of renal obstruction. There are stable phleboliths adjacent to the right ureter. There are st able phleboliths in the pelvis. The urinary bladder appears normal. The uterus is absent. There are benign phleboliths in the pelvis. There is no intra-abdominal free fluid. There is no intra-abdominal free gas. There is no lymphadenopathy. There is a moderately heavy burden of nonacute colonic diverticulosis, greatest in the descending and sigmoid colon segment. There is no bowel obstruction or bowel inflammation. A small vestigial append ix is present and reveals no evidence of inflammation. IMPRESSION: 1. There is an incompletely imaged 4.9 x 10.5 x 13 cm hematoma within the right lateral hip musculature overlying the greater trochanter and extending into the lateral proximal thigh musculature. There is no intra-abdominal or retroperitoneal hemorrhage. 2. There is no acute intra-abdominal process. 3. There is a moderately heavy burden of nonacute colonic diverticulosis. SL: [id number] Femur series DX Procedure: Right femur radiographs. 01/14/2018 [facility] Clinical Indication: Distal right femur pain post fall. Comparison: None. FINDINGS: Radiographs of the right femur, 4 views, demonstrate degenerative change involving the right hip and right knee including marginal osteophyte formation. No acute displaced fracture or dislocation is identified. IMPRESSION: 1. Degenerative change. SL:[id number] Chest Pulmonary CT ANGIOGRAPHY CHEST, 12/19/2017 [facility] Embolism CTA INDICATION: History of pulmonary embolism. Shortness of breath and chest pain. Chronic obstructive pulmonary disease. COMPARISON: 04/07/2014 TECHNIQUE: 100 mL of Isovue-300 iodinated contrast was administered intravenously by rapid injection, with further multislice axial sections acquired in the pulmonary arterial phase from the thoracic i nlet to the upper abdomen. Coronal and 3-D reformatted images were obtained. CT imaging was performed with exposure control parameters to reduce radiation dose. LIMITATIONS: Non-gated technique limits cardiac detail. FINDINGS: Mediastinal windows: The heart is borderline size. There is no pericardial or pleural effusion. The thoracic aorta is normal caliber with mild atherosclerotic calcifications. There is no mediastinal, hilar or axillary lymphadenopathy. No CT evidence for pulmonary embolism. Lungs windows: Right middle lobe calcified granuloma. Minimal areas of scarring. No acute consolidation or mass. 3 mm nodule right lower lobe image 47 is unchanged. 2 mm nodule left upper lobe image 12 likely stable. There is a few tiny 2 -- 3 mm nodules in the right upper lobe best seen on the coronal reconstructed images. There is resolution of previously identified right upper lobe infiltrate and nodular foci. Musculoskeletal: No acute bone or soft tissue abnormalities. Upper abdomen: Cystectomy. The common bile duct is dilated similar previous study likely postcholecystectomy ectasia.. Additional comments: None. IMPRESSION: 1. No CT evidence for pulmonary embolism. 2. Resolution of previously identified right upper lobe infiltrate. 3. A few tiny bilateral pulmonary nodules stable from previous study favoring benign etiology. SL: [id number] Breast Complete Uni US - BREAST COMPLETE UNI US/L 11/16/2016 [facility] ULTRASOUND OF LEFT BREAST AND LEFT AXILLA: 11/16/2016 CLINICAL: Left Breast Lump/Breast Lump 60-year-old female presents with a palpable abnormality in the left breast for one year. Comparison is made to exam dated: 11/16/2016 mammogram - [facility] German Sy. Color flow and real-time ultrasound of the left breast and axilla were performed. Edwards scale images of the real-time examination were reviewed. All 4 quadrants and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
--- OUTSIDE RECORDS SUMMARY | 2019-01-05 23:48 | XMS REPORT | Summary of Care ---
:1955 Author Organization [facility] Address [address] [place] [address]- Encounter HQ Дмитрий(FIN) [id number] Date(s): 01/31/15 - 01/31/15 [facility] [address] [place] [address]- Discharge Disposition: Not Seen Attending Physician: Lorie Marrufo MD Vital Signs Most recent to oldest [Reference Range]: 1 Height 172.72 cm (01/31/15 7:47 PM) Most recent to oldest [Reference Range]: 1 Temperature Oral [96.4-99.1 DegF] 96 DegF *LOW* (01/31/15 7:47 PM) Most recent to oldest [Reference Range]: 1 Blood Pressure [90-140/60-90 mmHg] 162/85 mmHg *HI* (01/31/15 7:47 PM) Most recent to oldest [Reference Range]: 1 Respiratory Rate [14-20 BRMIN] 18 BRMIN (01/31/15 7:47 PM) Most recent to oldest [Reference Range]: 1 Peripheral Pulse Rate [60-100 bpm] 76 bpm (01/31/15 7:47 PM) Most recent to oldest [Reference Range]: 1 Weight 113.636 kg (01/31/15 7:47 PM) Most recent to oldest [Reference Range]: 1 Body Mass Index 38.09 m2 (01/31/15 7:47 PM) Problem List Condition Effective Dates Status Health Status Informant COPD(Confirmed) Active GERD (gastroesophageal reflux Active disease)(Confirmed) Hypertension(Confirmed) Active Allergies, Adverse Reactions, Alerts Substance Reaction Severity Status NKDA Active Medications No data available for this section Results No data available for this section Immunizations No data available for this section Procedures No data available for this section Social History Social History Type Response Substance Abuse Use: None. Exercise Exercise duration: 30. Exercise frequency: 1-2 times/week. Self assessment: Fair condition. Exercise type: Walking. Employment/School 1 Alcohol Current, Type Beer, Wine, Liquor. Frequency: 1-2 times per week. Last use: 04/05/14. Previous treatment: None. Alcohol use interferes with work or home: No. Drinks more than intended: No. Others hurt by drinking: No. Ready to change: No. Household alcohol concerns: No. Smoking Status Former smoker; Type: Cigarettes; Stopped at age: 54; Ready to change: Yes; Concerns about tobacco use in household: No; Exposure to Tobacco Smoke None; Cigarette Smoking Last 365 Days No; Reg Smoking Cessation Counseling Yes2 1PATIENT [id number] STOPPED SMOKING 4 YRS AGO Assessment and Plan No data available for this section
--- OUTSIDE RECORDS SUMMARY | 2019-01-05 23:48 | XMS REPORT | Summary of Care ---
:1955 Author Encounter MADHAV Choe(GENA) [id number] Date(s): 06/11/14 - 06/11/14 [facility] Out[facility] Discharge Disposition: Home Physician Attending: Willis Kerr MD Reason for Visit 562.01 - DIVERTICULITIS Problem List Condition Effective Dates Status Health Status Informant COPD(Confirmed) Active GERD (gastroesophageal reflux Active disease)(Confirmed) Hypertension(Confirmed) Active Allergies, Adverse Reactions, Alerts Substance Reaction Severity Status NKDA Active Medications No data available for this section Medications Administered During Your Visit No data available for this section Immunizations No data available for this section Social History Social History Type Response Substance Abuse Use: None Exercise Times per week: 1-2 times/week, Self assessment: Fair condition, Exercise type: Walking Employment/School 1 Alcohol Use: Current, Type: Beer, Type: Wine, Type: Liquor, Frequency: 1-2 times per week, Previous treatment: None, Has alcohol use interfered with work or home life? No, Do you ever drink more than intended? No, Has anyone been hurt or at risk by your drinking? No, Ready to change: No, Concerns about alcohol use in household: No Smoking Status Former smoker, Type: Cigarettes, Ready to change: Yes, Concerns about tobacco use in household: No, Exposure to Tobacco Smoke None, Cigarette Smoking Last 365 Days No, Reg Smoking Cessation Counseling Yes2 1PATIENT [id number] STOPPED SMOKING 4 YRS AGO
--- OUTSIDE RECORDS SUMMARY | 2019-01-05 23:48 | XMS REPORT | Summary of Care ---
:1955 Author Organization [facility] Outpatient [facility] Encounter HQ Дмитрий(FIN) [id number] Date(s): 03/26/15 - 03/26/15 [facility] [address] [address] [place] [address] [facility] [phone] Discharge Disposition: Home Attending Physician: Willis Kerr MD Vital Signs No data available for this section Problem List Condition Effective Dates Status Health [...] No; Reg Smoking Cessation Counseling Yes2 1PATIENT [id number] STOPPED SMOKING 4 YRS AGO Assessment and Plan No data available for this section
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
--- OUTSIDE RECORDS SUMMARY | 2019-01-05 23:48 | XMS REPORT | Summary of Care ---
:1955 Author Encounter HQ Mukulntr_mellissa(GENA) [id number] Date(s): 02/20/14 - 02/20/14 [facility] [address] Discharge Disposition: Home Physician Attending: Jake Ornelas MD Physician_Referring: Jake Ornelas MD Reason for Visit DYSPNEA Vital Signs Most recent to oldest [Reference Range]: 1 Height 168.91 cm (02/20/14 1:16 PM) Weight 122.727 kg (02/20/14 1:16 PM) Body Mass Index 43.02 m2 (02/20/14 1:16 PM) Problem List No data available for this section Allergies, Adverse Reactions, Alerts Substance Reaction Severity Status NKDA Active Medications No data available for this section Medications Administered During Your Visit No data available for this section Immunizations No data available for this section
--- OUTSIDE RECORDS SUMMARY | 2019-01-05 23:48 | XMS REPORT | Summary of Care ---
:1955 Author Organization [facility] Outpatient Imaging [facility] Address [address] [place] [address]- Encounter HQ Mukulntr_mellissa(FIN) [id number] Date(s): 03/31/15 - 03/31/15 [facility] Out[facility] [address] Discharge Disposition: Home Attending Physician: Willis Kerr [...] No; Reg Smoking Cessation Counseling Yes2 1PATIENT [id number] STOPPED SMOKING 4 YRS AGO Assessment and Plan No data available for this section
--- OUTSIDE RECORDS SUMMARY | 2019-01-05 23:49 | XMS REPORT | Summary of Care ---
:1955 Author Organization [facility] Address [address] [place] [address]- Encounter HQ Encntr_alijax(FIN) [id number] Date(s): 04/04/16 - 04/04/16 [facility] [address] [place] [address]- Discharge Disposition: Home or Self Care Attending Physician: Galileo Calhoun MD Admitting Physician: Galileo Calhoun MD Referring Physician: Galileo Calhoun MD Vital Signs No data available for this section Problem List Condition Effective Dates Status Health Status Informant Arthritis(Confirmed) Active COPD(Confirmed) Active DVT - Deep vein Resolved thrombosis(Confirmed) GERD (gastroesophageal reflux Active disease)(Confirmed) Hypertension(Confirmed) Active Pneumonia(Confirmed) Resolved Pulmonary embolism(Confirmed) Resolved Shortness of breath on Active exertion(Confirmed) Sleep apnea(Confirmed) Active Allergies, Adverse Reactions, Alerts Substance Reaction Severity Status NKDA Active Medications No data available for this section Results No data available for this section Immunizations No data available for this section Procedures Procedure Date Related Diagnosis Body Site Cervical discectomy 2010 Knee replacement 09/2008 Lumbar spinal fusion 2002 [...] No; Reg Smoking Cessation Counseling Yes2 1PATIENT [id number] STOPPED SMOKING 4 YRS AGO Assessment and Plan No data available for this section
--- OUTSIDE RECORDS SUMMARY | 2019-01-05 23:49 | XMS REPORT | Summary of Care ---
:1955 Author Organization [facility] Address [address] [place] [address]- Encounter HQ Mukulntr_mellissa(FIN) [id number] Date(s): 02/17/16 - 02/25/16 [facility] [address] [place] [address]- Discharge Disposition: Home or Self Care Attending Physician: Willis Kerr MD Admitting Physician: Willis Kerr MD Vital Signs Most recent to oldest 1 2 3 [Reference Range]: Height 172.72 cm 170.18 cm (02/22/16 2:03 PM) (02/17/16 2:56 PM) Temperature Oral [96.4-99.1 98.3 DegF 98.1 DegF 98.3 DegF DegF] (02/25/16 2:00 PM) (02/25/16 8:04 AM) (02/25/16 3:55 AM) Blood Pressure [90-140/60-90 144/90 mmHg 167/95 mmHg 131/84 mmHg mmHg] *HI* *HI* (02/25/16 3:55 AM) (02/25/16 2:00 PM) (02/25/16 8:04 AM) Respiratory Rate [14-20 18 BRMIN 18 BRMIN 20 BRMIN BRMIN] (02/25/16 2:00 PM) (02/25/16 8:04 AM) (02/25/16 3:55 AM) Peripheral Pulse Rate 60 bpm 78 bpm 74 bpm [60-100 bpm] (02/25/16 2:00 PM) (02/25/16 8:04 AM) (02/25/16 3:55 AM) Weight 125.318 kg 107.727 kg 117.727 kg (02/24/16 8:27 AM) (02/22/16 2:03 PM) (02/17/16 2:56 PM) Body Mass Index 36.11 m2 40.65 m2 (02/22/16 2:03 PM) (02/17/16 2:56 PM) Problem List Condition Effective Dates Status Health Status Informant Arthritis(Confirmed) Active COPD(Confirmed) Active DVT - Deep vein Resolved thrombosis(Confirmed) GERD (gastroesophageal reflux Active disease)(Confirmed) Hypertension(Confirmed) Active Pneumonia(Confirmed) Resolved Pulmonary embolism(Confirmed) Resolved Shortness of breath on Active exertion(Confirmed) Sleep apnea(Confirmed) Active Allergies, Adverse Reactions, Alerts Substance Reaction Severity Status NKDA Active Medications acetaminophen (ANES) Route: IV, Drug form: INJ, ONCE, Stop date: 02/18/16 9:04:00 CDT Start Date: 02/18/16 Stop Date: 02/18/16 Status: Completedacetaminophen-hydrocodone 325 mg-10 mg oral tablet 2 tab, Route: PO, Drug Form: TAB, Dosing Weight 117.727, kg, Q4H, PRN Pain Score 4-6, Start date: 02/18/16 8:59:00 CDT, Duration: 30 day, Stop date: 8:58:00 DIET CONSULTANT Notes: Do not exceed 4gm/day of acetaminophen. (Same as: Fenton 325/10) Start Date: 02/18/16 Stop Date: 02/25/16 Status: DiscontinuedANES albuterol 0.083% inhalation solution 2.49 mg, 3 mL, Route: NEB, Drug form: SOLN, PRN, Dosing Weight 117.727, kg, PRN Respiratory Protocol, Start date: 02/18/16 8:24:00 CDT, Duration: 30 day, Stop date: 03/19/16 7:23:00 DIET CONSULTANT Notes: SEE RT DOCUMENTATION (Same as: Proventil) Start Date: 02/18/16 Stop Date: 02/18/16 Status: DiscontinuedANES flumazenil 0.2 mg, 2 mL, Route: IVP, Drug form: INJ, PRN, Dosing Weight 117.727, kg, PRN Benzodiazepine Reversal, Initial dose, Start date: 02/18/16 8:24:00 CDT, Duration: 30 day, Stop date: 03/19/16 7:23:00 DIET CONSULTANT Notes: (Same as: Romazicon) Start Date: 02/18/16 Stop Date: 02/18/16 Status: DiscontinuedANES hydrALAZINE 10 mg, 0.5 mL, Route: IVP, Drug form: INJ, Q20Min, Dosing Weight 117.727, kg, PRN Elevated BP, Startdate: 02/18/16 8:24:00 CDT, Duration: 2 doses or times, Stop date: Limited # of times Notes: (Same as: Apresoline)Push over 5 minutes Start Date: 02/18/16 Stop Date: 02/18/16 Status: DiscontinuedANES HYDROmorphone 0.5 mg, 0.5 mL, Route: IVP, Drug form: INJ, Q5Min, Dosing Weight 117.727, kg, PRN Pain Score 7-10, Start date: 02/18/16 8:24:00 CDT, Duration: 4 doses or times, Stop date: Limited # of times Notes: Same as: Dilaudid Start Date: 02/18/16 Stop Date: 02/18/16 Status: DiscontinuedANES labetalol 10 mg, 2 mL, Route: IVP, Drug form: INJ, Q5Min, Dosing Weight 117.727, kg, PRN Elevated BP, Start date: 02/18/16 8:24:00 CDT, Duration: 5 doses or times, Stop date: Limited # of times Notes: (Same as: Normodyne, Trandate)Push over 2 minutes Give bolus over 2-3 minutes. Start Date: 02/18/16 Stop Date: 02/18/16 Status: DiscontinuedANES morphine Sulfate 2 mg, 1 mL, Route: IVP, Drug form: INJ, Q5Min, Dosing Weight 117.727, kg, PRN Pain Score 4-6, Start date: 02/18/16 8:24:00 CDT, Duration: 5 doses or times, Stop date: Limited # of times Notes: (Same as:MORPhine Sulfate) Start Date: 02/18/16 Stop Date: 02/18/16 Status: DiscontinuedANES naloxone 0.4 mg, 1 mL, Route: IVP, Drug form: INJ, Q2MIN, Dosing Weight 117.727, kg, PRN Narcotic Reversal, Start date: 02/18/16 8:24:00 CDT, Duration: 8 doses or times , Stop date: Limited # of times Notes: Same as Narcan Start Date: 02/18/16 Stop Date: 02/18/16 Status: DiscontinuedANES ondansetron 4 mg, 2 mL, Route: IVP, Drug form: INJ, ONCE, Dosing Weight 117.727, kg, PRN Nausea & Vomiting, Start date: 02/18/16 8:24:00 CDT Notes: (Same as: Zofran) MEDICATION WASTE Product Size: 4 mgProduct Wasted: ___ mg Start Date: 02/18/16 Stop Date: 02/18/16 Status: Discontinuedbudesonide-formoterol 160 mcg-4.5 mcg/inh inhalation aerosol with adapter 2 inhalation, Route: INHALATION, Drug Form: AERO/A, RBID, Start date: 02/18/16 17:39:00 CDT, Duration: 30 day, Stop date: 03/19/16 8:00:00 DIET CONSULTANT Notes: (Same as: Symbicort)WASTE: Aerosol - Return to Pharmacy Start Date: 02/18/16 Stop Date: 02/25/16 Status: DiscontinuedceFAZolin (ANES) Route: IV, Drug form: INJ, ONCE, Stop date: 02/18/16 9:04:00 CDT Start Date: 02/18/16 Stop Date: 02/18/16 Status: CompletedcefTRIAXone + sodium chloride 0.9% INJ 100 mL 2 gm, Route: IV, Q24H, Dosing Weight 117.727, kg, Priority: NOW, Start date: 04/22 19:41:00 CDT, Duration: 30 day, Stop date: 03/17/16 19:41:00 DIET CONSULTANT Notes: (Same As: Rocephin).Use with 100 mL NS and infuse over 30 min MEDICATION WASTE Product Size: 2000 mgProduct Wasted: _0__ mg Start Date: 02/17/16 Stop Date: 02/25/16 Status: Discontinueddexamethasone (ANES) Route: IV, Drug form: INJ, ONCE, Stop date: 02/18/16 9:04:00 CDT Start Date: 02/18/16 Stop Date: 02/18/16 Status: CompletedDilaudid 2 mg, 2 mL, Route: IVP, Drug form: INJ, Q3H, Dosing Weight 117.727, kg, PRN Pain Score 7-10, Start date: 02/17/16 16:11:00 CDT, Stop date: 03/18/16 16:10: 00 DIET CONSULTANT Notes: Same as: Dilaudid Start Date: 02/17/16 Stop Date: 02/25/16 Status: DiscontinuedDiovan 320 mg, 2 tab, Route: PO, Drug form: TAB, Daily, Start date: 02/18/16 9:00:00 CDT, Duration: 30 day,Stop date: 03/18/16 9:00:00 DIET CONSULTANT Notes: Same as Diovan Start Date: 02/18/16 Stop Date: 02/25/16 Status: Discontinueddocusate sodium 100 mg oral capsule 100 mg, 1 cap, Route: PO, Drug form: CAP, BID, Dosing Weight 117.727, kg, Start date: 02/18/16 9:00:00 CDT, Duration: 30 day, Stop date: 03/18/16 17:00:00 DIET CONSULTANT Notes: (Same as: Colace) (Do Not Crush) Start Date: 02/18/16 Stop Date: 02/25/16 Status: DiscontinuedDulera 200 mcg-5 mcg/inh inhalation aerosol 2 inhalation, Route: PO, Drug Form: AERO, Dosing Weight 117.727, kg, BID, Start date: 02/17/16 17:00:00 CDT, Duration: 30 day, Stop date: 03/18/16 9:00:00 DIET CONSULTANT Start Date: 02/17/16 Stop Date: 02/18/16 Status: Deletedenoxaparin 40 mg, 0.4 mL, Route: SUB-Q, Drug form: INJ, [id number], Dosing Weight 117.727, kg , Consider for obesepatients, Start date: 02/17/16 17:00:00 CDT, Duration: 30 day, Stop date: 03/18/16 5:00:00 DIET CONSULTANT Notes: (Same as: Lovenox) Start Date: 02/17/16 Stop Date: 02/18/16 Status: DiscontinuedePHEDrine (ANES) Route: IV, Drug form: INJ, ONCE, Stop date: 02/18/16 9:09:00 CDT Start Date: 02/18/16 Stop Date: 02/18/16 Status: CompletedfentaNYL (ANES) Route: IV, Drug form: INJ, ONCE, Stop date: 02/18/16 9:04:00 CDT Start Date: 02/18/16 Stop Date: 02/18/16 Status: Completedglycopyrrolate (ANES) Route: IV, Drug form: INJ, ONCE, Stop date: 02/18/16 9:09:00 CDT Start Date: 02/18/16 Stop Date: 02/18/16 Status: CompletedHeparin Lock 100 units/mL INJ solution 500 unit, 5 mL, Route: INJ, Drug Form: SOLN, Dosing Weight 117.727, kg, PRN, PRN Other -See Comment,Packed PICC lumens, Start date: 02/22/16 10:41:00 CDT, Duration: 30 day, Stop date: 03/23/16 9:40:00CST Notes: (Same as: Heparin Lock Flush) Start Date: 02/22/16 Stop Date: 02/25/16 Status: Discontinuedhydrochlorothiazide 25 mg oral tablet 25 mg, 1 tab, Route: PO, Drug form: TAB, Daily, Start date: 02/18/16 9:00:00 CDT , Duration: 30 day, Stop date: 03/18/16 9:00:00 DIET CONSULTANT Notes: (Same as: Hydrodiuril) With food. Start Date: 02/18/16 Stop Date: 02/20/16 Status: Discontinuedhydrochlorothiazide-valsartan 25 mg-320 mg oral tablet 1 tab, Route: PO, Drug Form: TAB, Dosing Weight 117.727, kg, Daily, Start date: 02/18/16 9:00:00 CDT, Duration: 30 day, Stop date: 03/18/16 9:00:00 DIET CONSULTANT Start Date: 02/18/16 Stop Date: 02/17/16 Status: Deletedhydromorphone 4 mg, PO, TID, 0 Refill(s) Start Date: 02/17/16 Stop Date: 02/25/16 Status: Discontinuedhydromorphone 4 mg, 2 tab, Route: PO, Drug form: TAB, Q8H, Dosing Weight 117.727, kg, Start date: 02/18/16 0:00:00CDT, Duration: 30 day, Stop date: 03/18/16 16:00:00 DIET CONSULTANT Notes: (Same as: Dilaudid) Start Date: 02/18/16 Stop Date: 02/25/16 Status: Discontinuedhydromorphone 8 mg oral tablet 8 mg=1 tab, PO, Q8H, PRN Pain, X 7 day, # 90 tab, 0 Refill(s), given to patient Start Date: 02/25/16 Stop Date: 03/03/16 Status: OrderedLactated Ringers 1,000 mL 1,000 mL, Rate: 75 ml/hr, Infuse over: 13.3 hr, Route: IV, Dosing Weight 117.727 kg, Total Volume: 1,000, Start date: 02/18/16 8:59:00 CDT, Duration: 30 day, Stop date: 03/19/16 8:58:00 DIET CONSULTANT Start Date: 02/18/16 Stop Date: 02/23/16 Status: DiscontinuedLR 1000 mL INJ (ANES) Route: IV, Total Volume: 1,000, Start date: 02/18/16 7:43:00 CDT, Stop date: 8:43:00 CDT Start Date: 02/18/16 Stop Date: 02/18/16 Status: Completedmetoprolol tartrate 100 mg, 2 tab, Route: PO, Drug form: TAB, Daily, Dosing Weight 117.727, kg, Start date: 02/21/16 9:00:00 CDT, Duration: 30 day, Stop date: 03/21/16 9:00:00 DIET CONSULTANT Notes: (Same as: Lopressor) Start Date: 02/21/16 Stop Date: 02/25/16 Status: Discontinuedmetoprolol tartrate 100 mg, 2 tab, Route: PO, Drug form: TAB, BID, Dosing Weight 117.727, kg, Start date: 02/17/16 21:00:00 CDT, Duration: 30 day, Stop date: 03/18/16 9:00:00 DIET CONSULTANT Notes: (Same as: Lopressor) Start Date: 02/17/16 Stop Date: 02/20/16 Status: Discontinuedmidazolam (ANES) Route: IV, Drug form: SOLN, ONCE, Stop date: 02/18/16 9:04:00 CDT Start Date: 02/18/16 Stop Date: 02/18/16 Status: Completedneostigmine (ANES) Route: IV, Drug form: INJ, ONCE, Stop date: 02/18/16 9:09:00 CDT Start Date: 02/18/16 Stop Date: 02/18/16 Status: CompletedNexIUM 40 mg, Route: PO, Daily, Dosing Weight 117.727, kg, Start date: 02/18/16 9:00: 00 CDT, Duration: 30 day, Stop date: 03/18/16 9:00:00 DIET CONSULTANT Start Date: 02/18/16 Stop Date: 02/17/16 Status: DeletedNorco 10/325 oral tablet 2 tab, PO, Q6H, # 160 tab, 0 Refill(s), given to patient Start Date: 02/25/16 Stop Date: 03/08/16 Status: Orderedondansetron 4 mg, 2 mL, Route: IVP, Drug form: INJ, Q6H, Dosing Weight 117.727, kg, PRN Nausea & Vomiting, Start date: 02/18/16 8:59:00 CDT, Duration: 30 day, Stop date: 03/19/16 8:58:00 DIET CONSULTANT Notes: (Same as: Zofran) MEDICATION WASTE Product Size: 4 mgProduct Wasted: 0 mg Start Date: 02/18/16 Stop Date: 02/25/16 Status: [id number] mg oral tablet, extended release 30 mg=3 tab, PO, Q8H, # 160 tab, 0 Refill(s), given to patient Start Date: 02/25/16 Status: OrderedoxyCONTIN 30 mg, 3 tab, Route: PO, Drug form: ERTAB, Q8H, Dosing Weight 117.727, kg, Start date: 02/17/16 19:17:00 CDT, Duration: 30 day, Stop date: 03/18/16 16:00: 00 DIET CONSULTANT Notes: Do not crush or chew.(Same as: OxyContin) Start Date: 02/17/16 Stop Date: 02/25/16 Status: Discontinuedpropofol (ANES) Route: IV, Drug form: INJ, ONCE, Stop date: 02/18/16 9:04:00 CDT Start Date: 02/18/16 Stop Date: 02/18/16 Status: CompletedProtonix 40 mg, 1 tab, Route: PO, Drug form: ECTAB, Before Dinner, Start date: 02/18/16 16:30:00 CDT, Duration: 30 day, Stop date: 03/18/16 16:30:00 DIET CONSULTANT Notes: Tablet should not be chewed or crushed.(Same as: Protonix) Start Date: 02/18/16 Stop Date: 02/25/16 Status: Discontinuedrivaroxaban 15 mg, 1 tab, Route: PO, Drug form: TAB, BID, Start date: 02/18/16 21:00:00 CDT , Duration: 16 day, Stop date: 03/05/16 9:00:00 CDT Notes: (Same as: Xarelto)Administer with food Start Date: 02/18/16 Stop Date: 02/25/16 Status: DiscontinuedRocephin 1 g injection 2 gm, IV, Q12H, X 90 day, # 1 pkg, 1 Refill(s), other Start Date: 02/25/16 Stop Date: 08/23/16 Status: Orderedrocuronium (ANES) Route: IV, Drug form: INJ, ONCE, Stop date: 02/18/16 9:04:00 CDT Start Date: 02/18/16 Stop Date: 02/18/16 Status: CompletedSaline Flush 0.9% 10 mL, Route: IVP, Drug Form: INJ, Dosing Weight 117.727, kg, Q8H, Start date: 02/22/16 16:00:00 CDT, Duration: 30 day, Stop date: 03/23/16 8:00:00 DIET CONSULTANT Notes: (Same as: BD Posiflush) Start Date: 02/22/16 Stop Date: 02/25/16 Status: DiscontinuedSaline Flush 0.9% 10 mL, Route: IVP, Drug Form: INJ, Dosing Weight 117.727, kg, PRN, PRN Line Flush, Start date: 02/22/16 10:41:00 CDT, Duration: 30 day, Stop date: 03/23/16 9:40:00 DIET CONSULTANT Notes: (Same as: BD Posiflush) Start Date: 02/22/16 Stop Date: 02/25/16 Status: Discontinuedvancomycin 1 gm, Route: IV, Q12H, Dosing Weight 117.727, kg, Priority: NOW, Start date: 04/22 19:42:00 CDT, Duration: 30 day, Stop date: 03/18/16 9:00:00 DIET CONSULTANT Start Date: 02/17/16 Stop Date: 02/17/16 Status: Deletedvancomycin + sodium chloride 0.9% 250 mL INJ (for IV set) 250 mL 1,500 mg, Route: IVPB, [id number], Start date: 02/17/16 21:00:00 CDT, Duration: 30 day, Stop date: 03/17/16 23:00:00 DIET CONSULTANT Notes: TIME CRITICAL MEDICATION(Same As: Vancocin)Infusion rate< 1000 mg: infuse over 1 [id number] - 1500 mg: infuse over 1.5 [id number] - 2000 mg: infuse over 2 hours> 2001 mg: infuse over 2.5 hours MEDICATION WASTE Product Size: 1500 mgProduct Wasted: _0__mg Start Date: 02/17/16 Stop Date: 02/18/16 Status: Discontinuedvancomycin + sodium chloride 0.9% 250 mL INJ (for IV set) 250 mL 1,500 mg, Route: IVPB, [id number], Start date: 02/18/16 11:00:00 CDT, Duration: 30 day, Stop date: 03/19/16 1:00:00 DIET CONSULTANT Notes: TIME CRITICAL MEDICATION(Same As: Vancocin)Infusion rate< 1000 mg: infuse over 1 [id number] - 1500 mg: infuse over 1.5 [id number] - 2000 mg: infuse over 2 hours> 2001 mg: infuse over 2.5 hours MEDICATION WASTE Product Size: 1000 mgProduct Wasted: 0mg Start Date: 02/18/16 Stop Date: 02/25/16 Status: Discontinuedvancomycin 1 g intravenous injection 1 gm, IV, Q12H, X 90 day, # 1 pkt, 0 Refill(s), other Start Date: 02/25/16 Stop Date: 05/25/16 Status: OrderedVentolin HFA 90 mcg/inh inhalation aerosol with adapter 2 puff, Route: INHALER, Drug Form: AERO/A, Dosing Weight 117.727, kg, RQ4H, PRN Wheezing, Start date: 02/17/16 16:09:00 CDT, Duration: 30 day, Stop date: 16:08:00 DIET CONSULTANT Notes: Albuterol 90 microgram/inh 8gm HFAWASTE: Aerosol - Return to Pharmacy Same as: Ventvirgen Proventil Start Date: 02/17/16 Stop Date: 02/25/16 Status: DiscontinuedXarelto 10 mg, Route: PO, Drug form: TAB, BID, Dosing Weight 117.727, kg, Start date: 17:00:00 CDT,Duration: 30 day, Stop date: 03/19/16 9:00:00 DIET CONSULTANT Start Date: 02/18/16 Stop Date: 02/18/16 Status: DeletedXarelto 10 mg oral tablet 10 mg=1 tab, PO, BID, 0 Refill(s) Start Date: 02/17/16 Status: OrderedZofran 4 mg, 2 mL, Route: IVP, Drug form: INJ, Q8H, Dosing Weight 117.727, kg, PRN Nausea, Start date: 02/17/16 16:14:00 CDT, Duration: 30 day, Stop date: 16:13:00 DIET CONSULTANT Notes: (Same as: Zofran) MEDICATION WASTE Product Size: 4 mgProduct Wasted: _0__ mg Start Date: 02/17/16 Stop Date: 02/18/16 Status: Discontinued Results ELECTROLYTES Most recent to oldest [Reference Range]: 1 2 Sodium Lvl [135-145 mEq/L] 135 mEq/L 135 mEq/L (02/19/16 5:09 AM) (02/17/16 5:35 PM) Potassium Lvl [3.5-5.1 mEq/L] 3.6 mEq/L 3.9 mEq/L (02/19/16 5:09 AM) (02/17/16 5:35 PM) Chloride Lvl [95-109 mEq/L] 101 mEq/L 101 mEq/L (02/19/16 5:09 AM) (02/17/16 5:35 PM) CO2 [24-32 mEq/L] 27 mEq/L 28 mEq/L (02/19/16 5:09 AM) (02/17/16 5:35 PM) AGAP [10.0-20.0 mEq/L] 10.6 mEq/L 9.9 mEq/L (02/19/16 5:09 AM) *LOW* (02/17/16 5:35 PM) CHEM PANEL Most recent to oldest [Reference Range]: 1 2 Creatinine Lvl [0.50-1.40 mg/dL] 0.64 mg/dL 0.67 mg/dL (02/19/16 5:09 AM) (02/17/16 5:35 PM) eGFR 96 mL/min/1.73m2 1 95 mL/min/1.73m2 2 *NA* *NA* (02/19/16 5:09 AM) (02/17/16 5:35 PM) BUN [7-22 mg/dL] 11 mg/dL 13 mg/dL (02/19/16 5:09 AM) (02/17/16 5:35 PM) B/C Ratio [6-25] 19 (02/17/16 5:35 PM) Glucose Lvl [70-99 mg/dL] 125 mg/dL 119 mg/dL *HI* *HI* (02/19/16 5:09 AM) (02/17/16 5:35 PM) Total Protein [6.4-8.4 g/dL] 7.1 g/dL (02/17/16 5:35 PM) Albumin Lvl [3.5-5.0 g/dL] 3.2 g/dL *LOW* (02/17/16 5:35 PM) Globulin [2.7-4.2 g/dL] 3.9 g/dL (02/17/16 5:35 PM) A/G Ratio [0.7-1.6] 0.8 (02/17/16 5:35 PM) Calcium Lvl [8.5-10.5 mg/dL] 8.9 mg/dL 9.0 mg/dL (02/19/16 5:09 AM) (02/17/16 5:35 PM) Magnesium Lvl [1.8-2.4 mg/dL] 1.6 mg/dL *LOW* (02/17/16 5:35 PM) ALT [0-65 unit/L] 82 unit/L *HI* (02/17/16 5:35 PM) AST [0-37 unit/L] 41 unit/L *HI* (02/17/16 5:35 PM) Alk Phos [39-136 unit/L] 169 unit/L *HI* (02/17/16 5:35 PM) Bili Total [0.2-1.3 mg/dL] 0.7 mg/dL (02/17/16 5:35 PM) 1Result Comment: The eGFR is calculated using the CKD-EPI formula. In most young , healthy individualsthe eGFR will be >90 mL/min/1.73m2. The eGFR declines with age. An eGFR of 60-89 may be normal in some populations, particularly the elderly, for whom the CKD-EPI formula has not been extensively validated. Use of the eGFR is not recommended in the following populations: Individuals with unstable creatinine concentrations, including patients and those with serious co-morbid conditions. Patients with extremes in muscle mass or diet. The data above are obtained from the National Kidney Disease Education Program ( NKDEP) which additionally recommends that when the eGFR is used in patients with extremes of body mass index for purposesof drug dosing, the eGFR should be multiplied by the estimated BMI.2Result Comment: The eGFR is calculated using the CKD-EPI formula. In most young, healthy individualsthe eGFR will be >90 mL/ min/1.73m2. The eGFR declines with age. An eGFR of 60-89 may be normal in some populations, particularly the elderly, for whom the CKD-EPI formula has not been extensively validated. Use of the eGFR is not recommended in the following populations: Individuals with unstable creatinine concentrations, including patients and those with serious co-morbid conditions. Patients with extremes in muscle mass or diet. The data above are obtained from the National Kidney Disease Education Program ( NKDEP) which additionally recommends that when the eGFR is used in patients with extremes of body mass index for purposesof drug dosing, the eGFR should be multiplied by the estimated BMI.TOXICOLOGY Most recent to oldest [Reference Range]: 1 2 Vanco Tr TND 2200 *NA* (02/19/16 9:59 PM) Vanco Tr 17.5 ug/ml *NA* (02/19/16 9:59 PM) IMMUNOLOGY Most recent to oldest [Reference Range]: 1 2 CRP [<=2.9 mg/L] 40.9 mg/L *HI* (02/19/16 5:09 AM) HEMATOLOGY Most recent to oldest [Reference Range]: 1 2 WBC [3.7-10.4 K/CMM] 10.3 K/CMM 10.1 K/CMM (02/19/16 6:09 AM) (02/17/16 5:35 PM) RBC [4.20-5.40 M/CMM] 3.84 M/CMM 4.54 M/CMM *LOW* (02/17/16 5:35 PM) (02/19/16 6:09 AM) Hgb [12.0-16.0 g/dL] 12.4 g/dL 14.5 g/dL (02/19/16 6:09 AM) (02/17/16 5:35 PM) Hct [36.0-48.0 %] 36.4 % 43.1 % (02/19/16 6:09 AM) (02/17/16 5:35 PM) MCV [80.0-98.0 fL] 94.6 fL 94.9 fL (02/19/16 6:09 AM) (02/17/16 5:35 PM) MCH [27.0-31.0 pg] 32.1 pg 32.0 pg *HI* *HI* (02/19/16 6:09 AM) (02/17/16 5:35 PM) MCHC [32.0-36.0 g/dL] 34.0 g/dL 33.7 g/dL (02/19/16 6:09 AM) (02/17/16 5:35 PM) RDW [11.5-14.5 %] 14.6 % 14.6 % *HI* *HI* (02/19/16 6:09 AM) (02/17/16 5:35 PM) Platelet [133-450 K/CMM] 230 K/CMM 258 K/CMM (02/19/16 6:09 AM) (02/17/16 5:35 PM) MPV [7.4-10.4 fL] 8.7 fL 8.6 fL (02/19/16 6:09 AM) (02/17/16 5:35 PM) Segs [45.0-75.0 %] 64.4 % 67.7 % (02/19/16 6:09 AM) (02/17/16 5:35 PM) Lymphocytes [20.0-40.0 %] 22.6 % 15.8 % (02/19/16 6:09 AM) *LOW* (02/17/16 5:35 PM) Monocytes [2.0-12.0 %] 10.8 % 15.1 % (02/19/16 6:09 AM) *HI* (02/17/16 5:35 PM) Eosinophils [0.0-4.0 %] 1.3 % 0.8 % (02/19/16 6:09 AM) (02/17/16 5:35 PM) Basophils [0.0-1.0 %] 0.9 % 0.6 % (02/19/16 6:09 AM) (02/17/16 5:35 PM) Segs-Bands # [1.5-8.1 K/CMM] 6.6 K/CMM 6.8 K/CMM (02/19/16 6:09 AM) (02/17/16 5:35 PM) Lymphocytes # [1.0-5.5 K/CMM] 2.3 K/CMM 1.6 K/CMM (02/19/16 6:09 AM) (02/17/16 5:35 PM) Monocytes # [0.0-0.8 K/CMM] 1.1 K/CMM 1.5 K/CMM *HI* *HI* (02/19/16 6:09 AM) (02/17/16 5:35 PM) Eosinophils # [0.0-0.5 K/CMM] 0.1 K/CMM 0.1 K/CMM (02/19/16 6:09 AM) (02/17/16 5:35 PM) Basophils # [0.0-0.2 K/CMM] 0.1 K/CMM 0.1 K/CMM (02/19/16 6:09 AM) (02/17/16 5:35 PM) PTT [22.9-35.8 seconds] 32.9 seconds (02/17/16 5:35 PM) Immunizations No data available for this section [...] No; Reg Smoking Cessation Counseling Yes2 1PATIENT [id number] STOPPED SMOKING 4 YRS AGO Assessment and Plan No data available for this section
--- OUTSIDE RECORDS SUMMARY | 2019-01-05 23:49 | XMS REPORT | Summary of Care ---
:1955 Author Name Delma Rodríguez M.A. Address Unavailable Unavailable , Care Team Providers Name Role Phone JHOAN CASTANEDA M.D. 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 Start : 10-Jul-2017 Active Allergies and Adverse Reactions Name Dates Details Allergy history not documented Status: Procedures Procedure Dates Details Procedures not documented Immunization Name Dates Details Immunizations not documented Social History Name Dates Details Unknown if ever smoked Vital Signs Date Test Result Details No Known Vitals to report Results Date Description Value Details Results not documented Plan of Care Name Dates Details Planned Observations Planned Goals not documented Instructions Name Dates Details Instructions not documented Encounters Appointment; JHOAN CASTANEDA M.D. On: 30-Nov-2015 10:30 Encounter Diagnosis: Problem not documented Appointment; JHOAN CASTANEDA M.D. On: 17-Dec-2015 8:00 Encounter Diagnosis: Problem not documented Appointment; TARAS MILLER P.A. On: 21-Dec-2015 14:30 Encounter Diagnosis: Problem not documented Appointment; TARAS MILLER P.A. On: 28-Dec-2015 8:20 Encounter Diagnosis: Problem not documented Appointment; JHOAN CASTANEDA M.D. On: 19-Jan-2016 9:00 Encounter Diagnosis: Problem not documented Appointment; JHOAN CASTANEDA M.D. On: 02-Feb-2016 9:50 Encounter Diagnosis: Problem not documented Appointment; JHOAN CASTANEDA M.D. On: 17-Feb-2016 13:10 Encounter Diagnosis: Problem not documented Appointment; JHOAN CASTANEDA M.D. On: 01-Mar-2016 10:10 Encounter Diagnosis: Problem not documented Appointment; JHOAN CASTANEDA M.D. On: 15-Mar-2016 10:10 Encounter Diagnosis: Problem not documented Appointment; TARAS MILLER P.A. On: 21-Mar-2016 10:35 Encounter Diagnosis: Problem not documented Appointment; JHOAN CASTANEDA M.D. On: 19-Apr-2016 9:50 Encounter Diagnosis: Problem not documented Appointment; JHOAN CASTANEDA M.D. On: 11-Jul-2016 9:40 Encounter Diagnosis: Problem not documented Appointment; JHOAN CASTANEDA M.D. On: 11-Jan-2017 14:00 Encounter Diagnosis: Problem not documented Appointment; TARAS MILLER P.A. On: 08-Feb-2017 14:00 Encounter Diagnosis: Problem not documented Appointment; JHOAN CASTANEDA M.D. On: 14-Feb-2017 8:50 Encounter Diagnosis: Problem not documented
--- OUTSIDE RECORDS SUMMARY | 2019-01-05 23:49 | XMS REPORT | Summary of Care ---
:1955 Author Organization [facility] Outpatient Imaging - [facility] Encounter HQ Qian_mellissa(FIN) [id number] Date(s): 03/17/16 - 03/17/16 [facility] [address] [address] [address] [place] [phone] Discharge Disposition: Home or Self Care Attending Physician: Willis Kerr MD Vital Signs [...] No; Reg Smoking Cessation Counseling Yes2 1PATIENT [id number] STOPPED SMOKING 4 YRS AGO Assessment and Plan No data available for this section
--- OUTSIDE RECORDS SUMMARY | 2019-01-05 23:49 | XMS REPORT | Summary of Care ---
:1955 Author Organization [facility] Outpatient Imaging [facility] Address [address] [place], [place] [address]- Encounter HQ Encntr_alias(FIN) [id number] Date(s): 11/16/16 - 11/16/16 [facility] [address] [place], [place] [address]- Discharge Disposition: Home or Self Care Attending Physician: Ericka Velazquez MD Vital Signs No data available for [...] No; Reg Smoking Cessation Counseling Yes2 1PATIENT [id number] STOPPED SMOKING 4 YRS AGO Assessment and Plan No data available for this section
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
--- OUTSIDE RECORDS SUMMARY | 2019-01-05 23:49 | XMS REPORT | Summary of Care ---
:1955 Author Organization [facility] Address [address] [place] [address]- Encounter HQ Дмитрий(FIN) [id number] Date(s): 01/14/18 - 01/17/18 [facility] [address] [place] [address]- [phone] Encounter Diagnosis Contusion of right thigh, initial encounter (Final) - 01/22/18 Urinary tract infection, site not specified (Final) - Acute posthemorrhagic anemia (Final) - Essential (primary) hypertension (Final) - Chronic obstructive pulmonary disease, unspecified (Final) - Chronic pain syndrome (Final) - Pain in right thigh (Final) - Disorder of kidney and ureter, unspecified (Final) - Fall on same level from slipping, tripping and stumbling without subsequent striking against object,initial encounter (Final) - 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) - Discharge Disposition: Home Care with Home Health Attending Physician: Doug Willard DO Admitting Physician: Doug Willard DO Referring Physician: Doug Willard DO Vital Signs Most recent to oldest 1 2 3 [Reference Range]: Height 172.72 cm (01/14/18 7:55 PM) Current Weight 134.182 kg (01/16/18 5:57 AM) Temperature Oral [96.4-99.1 98.2 DegF 98.6 DegF 99.3 DegF DegF] (01/17/18 7:50 AM) (01/17/18 4:35 AM) *HI* (01/16/18 11:56 PM) Blood Pressure [90-140/60-90 127/79 mmHg 115/74 mmHg 104/67 mmHg mmHg] (01/17/18 7:50 AM) (01/17/18 4:35 AM) (01/16/18 11:56 PM) Respiratory Rate [14-20 BRMIN] 18 BRMIN 18 BRMIN 17 BRMIN (01/17/18 7:50 AM) (01/17/18 4:35 AM) (01/16/18 11:56 PM) Peripheral Pulse Rate [60-100 92 bpm 81 bpm 97 bpm bpm] (01/17/18 7:50 AM) (01/17/18 4:35 AM) (01/16/18 11:56 PM) Weight 130.455 kg (01/14/18 7:55 PM) Body Mass Index 43.73 m2 (01/14/18 7:55 PM) Problem List Condition Effective Dates Status Health Status Informant Arthritis(Confirmed) Active COPD(Confirmed) Active DVT - Deep vein Resolved thrombosis(Confirmed) GERD (gastroesophageal reflux Active disease)(Confirmed) Hypertension(Confirmed) Active Morbid obesity(Confirmed) Active Pneumonia(Confirmed) Resolved Pulmonary embolism(Confirmed) Resolved Shortness of breath on Active exertion(Confirmed) Sleep apnea(Confirmed) Active Allergies, Adverse Reactions, Alerts Substance Reaction Severity Status NKDA Active Medications albuterol 2.49 mg, 3 mL, Route: NEB, Drug form: SOLN, RQ6H, Start date: 01/15/18 2:00:00 CDT, Duration: 30 day, Stop date: 02/13/18 20:00:00 CDT Notes: SEE RT DOCUMENTATION (Same as: Proventil) Start Date: 01/15/18 Stop Date: 01/17/18 Status: DiscontinuedBD Normal Saline Flush 25 mL, Route: IV, Drug Form: INJ, PRN, PRN Line Flush, Start date: 01/15/18 1:45 :00 CDT, Duration: 30 day, Stop date: 02/14/18 1:44:00 CDT Notes: (Same as: BD Posiflush) Start Date: 01/15/18 Stop Date: 01/17/18 Status: DiscontinuedBD Normal Saline Flush 10 mL, Route: IV, Drug Form: INJ, PRN, PRN Line Flush, Start date: 01/15/18 1:45 :00 CDT, Duration: 30 day, Stop date: 02/14/18 1:44:00 CDT Notes: (Same as: BD Posiflush) Start Date: 01/15/18 Stop Date: 01/17/18 Status: DiscontinuedcefTRIAXone + sterile water 10 mL 1 gm, Route: IV, [id number], Start date: 01/14/18 21:00:00 CDT, Duration: 10 doses or times, Stop date:01/23/18 21:00:00 CDT, ABX Indication: Genital Tract Infection Notes: (Same As: Rocephin).Use with 100 mL NS and infuse over 30 min MEDICATION WASTE Product Size: 1000 mgProduct Wasted: _0__ mg Start Date: 01/14/18 Stop Date: 01/17/18 Status: DiscontinuedColace 100 mg oral capsule 100 mg=1 cap, PO, BID, # 60 cap, 0 Refill(s) Start Date: 01/17/18 Status: OrderedColace 100 mg oral capsule 100 mg, 1 cap, Route: PO, Drug form: CAP, BID, Dosing Weight 130.455, kg, Start date: 01/16/18 21:12:00 CDT, Duration: 30 day, Stop date: 02/15/18 17:00:00 CDT Notes: (Same as: Colace) (Do Not Crush) Start Date: 01/16/18 Stop Date: 01/17/18 Status: Discontinuedcyclobenzaprine 10 mg oral tablet 10 mg=1 tab, PO, TID, # 15 tab, 0 Refill(s) Start Date: 01/17/18 Stop Date: 01/22/18 Status: CompletedDulera 200 mcg-5 mcg/inh inhalation aerosol 2 inhalation, Route: PO, Drug Form: AERO, Dosing Weight 130.455, kg, BID, Start date: 01/15/18 9:00:00 CDT, Duration: 30 day, Stop date: 02/13/18 17:00:00 CDT Start Date: 01/15/18 Stop Date: 01/14/18 Status: DeletedFeosol 325 mg oral tablet 325 mg, PO, BID, # 60 tab, 0 Refill(s) Start Date: 01/17/18 Status: OrderedFlexeril 10 mg, 1 tab, Route: PO, Drug form: TAB, TID, Dosing Weight 130.455, kg, Start date: 01/15/18 9:00:00 CDT, Duration: 30 day, Stop date: 02/13/18 17:00:00 CDT Notes: (Same As: Flexeril) Start Date: 01/15/18 Stop Date: 01/17/18 Status: DiscontinuedNexIUM 40 mg, Route: PO, Daily, Dosing Weight 130.455, kg, Start date: 01/15/18 9:00: 00 CDT, Duration: 30 day, Stop date: 02/13/18 9:00:00 CDT Start Date: 01/15/18 Stop Date: 01/14/18 Status: DeletedNorco 7.5/325 oral tablet 2 tab, Route: PO, Drug Form: TAB, Dosing Weight 130.455, kg, Q6H, PRN Pain Score 7-10, Start date: 01/14/18 20:33:00 CDT, Duration: 30 day, Stop date: 01/23 20:32:00 CDT Notes: Same as [place] 325-7.5mg Do not exceed 4gm/day of acetaminophen. Start Date: 01/14/18 Stop Date: 01/17/18 Status: DiscontinuedNorco 7.5/325 oral tablet 1 tab, Route: PO, Drug Form: TAB, Dosing Weight 130.455, kg, Q6H, PRN Pain Score 4-6, Start date: 01/14/18 20:33:00 CDT, Duration: 30 day, Stop date: 02/13 20:32:00 CDT Notes: Same as [place] 325-7.5mg Do not exceed 4gm/day of acetaminophen. Start Date: 01/14/18 Stop Date: 01/17/18 Status: DiscontinuedNS + KCL 20mEq/L 1000ml (Premix) 1,000 mL 1,000 mL, Rate: 100 ml/hr, Infuse over: 10 hr, Route: IV, Dosing Weight 130.455 kg, Total Volume: 1,000, Start date: 01/14/18 20:09:00 CDT, Duration: 30 day, Stop date: 02/13/18 20:08:00 CDT, 2.54, m2 Notes: PREMIX IV - Do Not AlterWASTE: F/P - Sink; E - Municipal Trash Bin Start Date: 01/14/18 Stop Date: 01/15/18 Status: DiscontinuedNS 1,000 mL 1,000 mL, Rate: 75 ml/hr, Infuse over: 13.3 hr, Route: IV, Dosing Weight 130.455 kg, Total Volume: 1,000, Start date: 01/15/18 8:27:00 CDT, Duration: 30 day, Stop date: 02/14/18 8:26:00 CDT, 2.54, m2 Start Date: 01/15/18 Stop Date: 01/16/18 Status: DiscontinuedoxyCODONE 10 mg extended release See Instructions, 20 mg PO TID, 0 Refill(s) Start Date: 01/14/18 Status: OrderedoxyCODONE 10 mg oral tablet 10 mg=1 tab, PO, TID, 0 Refill(s) Start Date: 01/14/18 Status: Orderedpneumococcal 23-valent vaccine 0.5 mL, Route: IM, Drug Form: INJ, ONCALL, Start date: 01/14/18 20:03:43 CDT, Stop date: 02/13/18 19:58:43 CDT Notes: (Same as: Pneumovax 23) Refrigerate Start Date: 01/14/18 Stop Date: 01/17/18 Status: DiscontinuedProtonix 40 mg, 1 tab, Route: PO, Drug form: ECTAB, Before Dinner, Start date: 01/15/18 16:30:00 CDT, Duration: 30 day, Stop date: 02/13/18 16:30:00 CDT Notes: Tablet should not be chewed or crushed.(Same as: Protonix) Start Date: 01/15/18 Stop Date: 01/17/18 Status: DiscontinuedPulmicort Respules 0.5 mg, 2 mL, Route: NEB, Drug form: SUSP, RQ12H, Start date: 01/14/18 21:20:00 CDT, Duration: 30 day, Stop date: 02/13/18 16:00:00 CDT Notes: (Same As: Pulmicort) Start Date: 01/14/18 Stop Date: 01/17/18 Status: DiscontinuedRocephin 1 gm, Route: IVPB, Drug form: PDR/INJ, GFLB16H, Dosing Weight 130.455, kg, Start date: 01/14/18 21:00:00 CDT, Duration: 10 day, Stop date: 01/23/18 21:00: 00 CDT, ABX Indication: Genital Tract Infection Start Date: 01/14/18 Stop Date: 01/14/18 Status: Deletedtramadol 100 mg, 2 tab, Route: PO, Drug form: TAB, Q6H, Dosing Weight 130.455, kg, PRN Pain Score 6-10, Startdate: 01/15/18 1:41:00 CDT, Duration: 30 day, Stop date: 02/14/18 1:40:00 CDT Start Date: 01/15/18 Stop Date: 01/17/18 Status: DiscontinuedVentolin HFA 90 mcg/inh inhalation aerosol with adapter 2.49 mg, 3 mL, Route: NEB, Drug Form: SOLN, Dosing Weight 130.455, kg, RQ4H, PRN Wheezing, Start date: 01/14/18 20:30:00 CDT, Duration: 30 day, Stop date: 20:29:00 CDT Notes: SEE RT DOCUMENTATION (Same as: Proventil) Start Date: 01/14/18 Stop Date: 01/17/18 Status: DiscontinuedXarelto 10 mg, 1 tab, Route: PO, Drug form: TAB, Q12H, Dosing Weight 130.455, kg, Start date: 01/15/18 9:00:00 CDT, Duration: 30 day, Stop date: 02/13/18 21:00:00 CDT Notes: (Same as: Xarelto) Start Date: 01/15/18 Stop Date: 01/15/18 Status: DiscontinuedZithromax Z-Kevin See Instructions, PO 5 day, unkonwn dose, pt does not recall, 0 Refill(s) Start Date: 01/14/18 Stop Date: 01/17/18 Status: Discontinued Results BLOOD BANK RESULTS Most recent to oldest [Reference Range]: 1 2 3 ABO/Rh O NEG *Unknown* (01/16/18 9:34 AM) Antibody Scrn Negative (01/16/18 9:34 AM) ELECTROLYTES Most recent to oldest 1 2 3 [Reference Range]: Sodium Lvl [135-145 mEq/L] 137 mEq/L 141 mEq/L 138 mEq/L (01/17/18 4:50 AM) (01/16/18 4:34 AM) (01/15/18 2:21 AM) Potassium Lvl [3.5-5.1 4.4 mEq/L 4.0 mEq/L 4.2 mEq/L mEq/L] (01/17/18 4:50 AM) (01/16/18 4:34 AM) (01/15/18 2:21 AM) Chloride Lvl [95-109 mEq/L] 105 mEq/L 107 mEq/L 105 mEq/L (01/17/18 4:50 AM) (01/16/18 4:34 AM) (01/15/18 2:21 AM) CO2 [24-32 mEq/L] 26 mEq/L 26 mEq/L 27 mEq/L (01/17/18 4:50 AM) (01/16/18 4:34 AM) (01/15/18 2:21 AM) AGAP [10.0-20.0 mEq/L] 10.4 mEq/L 12.0 mEq/L 10.2 mEq/L (01/17/18 4:50 AM) (01/16/18 4:34 AM) (01/15/18 2:21 AM) CHEM PANEL Most recent to oldest 1 2 3 [Reference Range]: Creatinine Lvl [0.50-1.40 0.72 mg/dL 0.84 mg/dL 1.41 mg/dL mg/dL] (01/17/18 4:50 AM) (01/16/18 4:34 AM) *HI* (01/15/18 2:21 AM) eGFR 89 mL/min/1.73m2 1 74 mL/min/1.73m2 2 39 mL/min/1.73m2 3 *NA* *NA* *NA* (01/17/18 4:50 AM) (01/16/18 4:34 AM) (01/15/18 2:21 AM) BUN [7-22 mg/dL] 20 mg/dL 28 mg/dL 42 mg/dL (01/17/18 4:50 AM) *HI* *HI* (01/16/18 4:34 AM) (01/15/18 2:21 AM) Glucose Lvl [70-99 mg/dL] 103 mg/dL 109 mg/dL 110 mg/dL *HI* *HI* *HI* (01/17/18 4:50 AM) (01/16/18 4:34 AM) (01/15/18 2:21 AM) Calcium Lvl [8.5-10.5 mg/dL] 8.3 mg/dL 8.5 mg/dL 8.5 mg/dL *LOW* (01/16/18 4:34 AM) (01/15/18 2:21 AM) (01/17/18 4:50 AM) 1Result Comment: The eGFR is calculated using the CKD-EPI formula. In most young , healthy individualsthe eGFR will be >90 mL/min/1.73m2. The eGFR declines with age. An eGFR of 60-89 may be normal insome populations, particularly the elderly, for whom the [...] young, healthy individualsthe eGFR will be >90 mL/min/1.73m2. The eGFR declines with age. An eGFR of 60-89 may be normal insome populations, particularly the elderly, for whom the [...] eGFR should be multiplied by the estimated BMI.3Result Comment: The eGFR is calculated using the CKD-EPI formula. In most young, healthy individualsthe eGFR will be >90 mL/min/1.73m2. The eGFR declines with age. An eGFR of 60-89 may be normal insome populations, particularly the elderly, for whom the [...] eGFR should be multiplied by the estimated BMI.URINE AND STOOL Most recent to oldest [Reference Range]: 1 2 3 UA Turbidity [Clear] Marked *ABN* (01/14/18 9:00 PM) UA Color [Yellow] Cecilia *ABN* (01/14/18 9:00 PM) UA pH [5.0-8.0] 5.0 (01/14/18 9:00 PM) UA Spec Grav [<=1.030] 1.021 (01/14/18 9:00 PM) UA Glucose [Negative mg/dL] Negative mg/dL *NA* (01/14/18 9:00 PM) UA Blood [Negative] Negative (01/14/18 9:00 PM) UA Ketones [Negative mg/dL] Negative mg/dL *NA* (01/14/18 9:00 PM) UA Protein [Negative mg/dL] 30 mg/dL *ABN* (01/14/18 9:00 PM) UA Urobilinogen [0.1-1.0 mg/dL] <=1.0 mg/dL *NA* (01/14/18 9:00 PM) UA Bili [Negative] Negative *NA* (01/14/18 9:00 PM) UA Leuk Est [Negative] Negative (01/14/18 9:00 PM) UA Nitrite [Negative] Negative (01/14/18 9:00 PM) UA WBC [0-5 /HPF] 3 /HPF (01/14/18 9:00 PM) UA RBC [0-2 /HPF] 1 /HPF (01/14/18 9:00 PM) UA Bacteria [None Seen /HPF] Occasional /HPF *NA* (01/14/18 9:00 PM) UA Sq Epi [Few /LPF] Many /LPF *ABN* (01/14/18 9:00 PM) UA Hyal Cast [0-2 /LPF] 30 /LPF *HI* (01/14/18 9:00 PM) UA Mucus [None Seen /LPF] Few /LPF *NA* (01/14/18 9:00 PM) HEMATOLOGY Most recent to oldest 1 2 3 [Reference Range]: WBC [3.7-10.4 K/CMM] 7.4 K/CMM 8.1 K/CMM 9.4 K/CMM (01/17/18 4:50 AM) (01/16/18 4:34 AM) (01/15/18 2:21 AM) RBC [4.20-5.40 M/CMM] 2.64 M/CMM 2.63 M/CMM 2.90 M/CMM *LOW* *LOW* *LOW* (01/17/18 4:50 AM) (01/16/18 4:34 AM) (01/15/18 2:21 AM) Hgb [12.0-16.0 g/dL] 8.6 g/dL 8.7 g/dL 9.2 g/dL *LOW* *LOW* *LOW* (01/17/18 4:50 AM) (01/16/18 4:34 AM) (01/15/18 6:50 PM) Hct [36.0-48.0 %] 25.1 % 24.8 % 26.6 % *LOW* *LOW* *LOW* (01/17/18 4:50 AM) (01/16/18 4:34 AM) (01/15/18 6:50 PM) MCV [80.0-98.0 fL] 94.9 fL 94.4 fL 94.0 fL (01/17/18 4:50 AM) (01/16/18 4:34 AM) (01/15/18 2:21 AM) MCH [27.0-31.0 pg] 32.4 pg 33.1 pg 32.5 pg *HI* *HI* *HI* (01/17/18 4:50 AM) (01/16/18 4:34 AM) (01/15/18 2:21 AM) MCHC [32.0-36.0 g/dL] 34.2 g/dL 35.1 g/dL 34.6 g/dL (01/17/18 4:50 AM) (01/16/18 4:34 AM) (01/15/18 2:21 AM) RDW [11.5-14.5 %] 14.0 % 13.7 % 13.9 % (01/17/18 4:50 AM) (01/16/18 4:34 AM) (01/15/18 2:21 AM) MPV [7.4-10.4 fL] 8.7 fL 9.0 fL 8.4 fL (01/17/18 4:50 AM) (01/16/18 4:34 AM) (01/15/18 2:21 AM) Platelet [133-450 K/CMM] 183 K/CMM 178 K/CMM 188 K/CMM (01/17/18 4:50 AM) (01/16/18 4:34 AM) (01/15/18 2:21 AM) Segs [45.0-75.0 %] 58.1 % 65.7 % 69.7 % (01/17/18 4:50 AM) (01/16/18 4:34 AM) (01/15/18 2:21 AM) Lymphocytes [20.0-40.0 %] 26.7 % 21.6 % 19.5 % (01/17/18 4:50 AM) (01/16/18 4:34 AM) *LOW* (01/15/18 2:21 AM) Monocytes [2.0-12.0 %] 11.1 % 10.5 % 9.4 % (01/17/18 4:50 AM) (01/16/18 4:34 AM) (01/15/18 2:21 AM) Eosinophils [0.0-4.0 %] 2.8 % 1.6 % 0.9 % (01/17/18 4:50 AM) (01/16/18 4:34 AM) (01/15/18 2:21 AM) Basophils [0.0-1.0 %] 1.3 % 0.6 % 0.5 % *HI* (01/16/18 4:34 AM) (01/15/18 2:21 AM) (01/17/18 4:50 AM) Neutrophils # [1.5-8.1 4.3 K/CMM 5.3 K/CMM 6.6 K/CMM K/CMM] (01/17/18 4:50 AM) (01/16/18 4:34 AM) (01/15/18 2:21 AM) Lymphocytes # [1.0-5.5 2.0 K/CMM 1.8 K/CMM 1.8 K/CMM K/CMM] (01/17/18 4:50 AM) (01/16/18 4:34 AM) (01/15/18 2:21 AM) Monocytes # [0.0-0.8 K/CMM] 0.8 K/CMM 0.8 K/CMM 0.9 K/CMM (01/17/18 4:50 AM) (01/16/18 4:34 AM) *HI* (01/15/18 2:21 AM) Eosinophils # [0.0-0.5 0.2 K/CMM 0.1 K/CMM 0.1 K/CMM K/CMM] (01/17/18 4:50 AM) (01/16/18 4:34 AM) (01/15/18 2:21 AM) Basophils # [0.0-0.2 K/CMM] 0.1 K/CMM 0.1 K/CMM (01/17/18 4:50 AM) (01/16/18 4:34 AM) PT [12.0-14.7 seconds] 18.0 seconds *HI* (01/15/18 2:21 AM) INR [0.85-1.17] 1.48 *HI* (01/15/18 2:21 AM) Immunizations No data available for this section [...] age: 54; 3 entered on: 03/08/18 1PATIENT [id number] as pt [id number] STOPPED SMOKING 4 YRS AGO Assessment and Plan No data available for this section
--- OUTSIDE RECORDS SUMMARY | 2019-01-05 23:49 | XMS REPORT | Summary of Care ---
:1955 Author Organization [facility] Address [address] [facility] [facility] [place] [address]- Encounter HQ Qian_mellissa(FIN) [id number] Date(s): 02/27/18 - 02/27/18 [facility] [address] [address] [facility] [address] [place] [address] [phone] Discharge Disposition: Home or Self Care Attending Physician: Adriano Farmer MD Referring Physician: Adriano Farmer MD Vital Signs Most recent to oldest [Reference Range]: 1 Blood Pressure [90-140/60-90 mmHg] 167/98 mmHg *HI* (02/27/18 3:30 PM) Peripheral Pulse Rate [60-100 bpm] 85 bpm (02/27/18 3:30 PM) Weight 126.136 kg (02/27/18 3:30 PM) Problem List Condition Effective Dates Status Health Status Informant Arthritis(Confirmed) Active COPD(Confirmed) Active DVT - Deep vein Resolved thrombosis(Confirmed) GERD (gastroesophageal reflux Active disease)(Confirmed) Hypertension(Confirmed) Active Morbid obesity(Confirmed) Active Pneumonia(Confirmed) Resolved Pulmonary embolism(Confirmed) Resolved Shortness of breath on Active exertion(Confirmed) Sleep apnea(Confirmed) Active Allergies, Adverse Reactions, Alerts No Known Medication Allergies Medications aspirin 0 Refill(s) Start Date: 02/27/18 Status: OrderedMacrobid 100 mg oral capsule 100 mg=1 cap, PO, BID, start day prior to procedure, X 3 day, # 6 cap, 0 Refill( s), Pharmacy: [facility] Start Date: 02/27/18 Stop Date: 03/02/18 Status: Completed Results No data available for this section [...] age: 54; 3 entered on: 03/08/18 1PATIENT [id number] as pt [id number] STOPPED SMOKING 4 YRS AGO Assessment and Plan No data available for this section
--- OUTSIDE RECORDS SUMMARY | 2019-01-05 23:49 | XMS REPORT | Summary of Care ---
:1955 Author Organization [facility] [address] [facility] [address] [place] [address]- Encounter HQ Encntr_alijax(FIN) [id number] Date(s): 03/08/18 - 03/08/18 [facility] [address] [address] [facility] [address] [place] [address] [phone] Discharge Disposition: Home or Self Care Attending Physician: Jake Christensen MD Referring Physician: Adriano Farmer MD Vital Signs No data available for this section Problem List Condition Effective Dates Status Health Status Informant Arthritis(Confirmed) Active COPD(Confirmed) Active DVT - Deep vein Resolved thrombosis(Confirmed) GERD (gastroesophageal reflux Active disease)(Confirmed) Hypertension(Confirmed) Active Morbid obesity(Confirmed) Active Pneumonia(Confirmed) Resolved Pulmonary embolism(Confirmed) Resolved Shortness of breath on Active exertion(Confirmed) Sleep apnea(Confirmed) Active Allergies, Adverse Reactions, Alerts No Known Medication Allergies Medications No Known Medications Results No data available for this section Immunizations No data available for this section Procedures Procedure Date Related Diagnosis Body Site Status Cystourethroscopy (separate procedure) 03/08/18 Completed Cystourethroscopy (separate procedure) 03/08/18 Completed Cervical discectomy 2009 Completed Knee replacement 09/2008 [...] age: 54; 3 entered on: 03/08/18 1PATIENT [id number] as pt [id number] STOPPED SMOKING 4 YRS AGO Assessment and Plan No data available for this section
--- OUTSIDE RECORDS SUMMARY | 2019-01-05 23:49 | XMS REPORT | Summary of Care ---
:1955 Author Organization [facility] Out[facility] Imaging [facility] Encounter HQ Qian_mellissa(FIN) [id number] Date(s): 03/09/16 - 03/09/16 [facility] [address] [place] [address] [phone] Discharge Disposition: Home or Self Care Attending [...] No; Reg Smoking Cessation Counseling Yes2 1PATIENT [id number] STOPPED SMOKING 4 YRS AGO Assessment and Plan No data available for this section
--- OUTSIDE RECORDS SUMMARY | 2019-01-05 23:49 | XMS REPORT | Summary of Care ---
:1955 Author Organization [facility] Address [address] [address] [facility] [place] [address]- Encounter HQ Encntr_alijax(FIN) [id number] Date(s): 03/08/18 - 03/08/18 [facility] [place] [address] [address] [facility] [address] [place] [address]- [phone] Discharge Disposition: Home or Self Care Attending [...] Alerts No Known Medication Allergies Medications No data available for this section [...] age: 54; 3 entered on: 03/08/18 1PATIENT [id number] as pt [id number] STOPPED SMOKING 4 YRS AGO Assessment and Plan No data available for this section
[2019-01-06] MEDS ORDERED: HYDROCODONE/APAP 10/325 TAB ONE (00:21)
[2019-01-06] MEDS ORDERED: ONDANSETRON 4 MG/2 ML VIAL ONE (00:29)
[2019-01-06] MEDS ORDERED: MEPERIDINE HCL 50 MG/ML ONE (01:17)
--- NOTE | 2019-01-06 03:34 | ER ---
Nurse's Notes [facility] Name: Rosanne Owens Age: 63 yrs Sex: Female : 1955 Arrival Date: 01/05/2019 Time: 23:45 Bed 7 Private MD: Diagnosis: Superficial injury of head;Contusion of right knee;Contusion of right wrist Presentation: 01/05 23:48 Presenting complaint: EMS states: they were toned out for report of pt having fallen bb without LOC pt is on blood thinners. Transition of care: patient was not received from another setting of care. Onset of symptoms was January 05, 2019. Risk Assessment: Do you want to hurt yourself or someone else? Patient reports no desire to harm self or others. Initial Sepsis Screen: Does the patient meet any 2 criteria? No. Patient's initial sepsis screen is negative. Does the patient have a suspected source of infection? No. Patient's initial sepsis screen is negative. Care prior to arrival: None. 23:48 Method Of Arrival: EMS: [facility] bb 23:48 Acuity: JOSELYN 3 bb 23:57 Mechanism of Injury: Fall from standing position. Trauma event details: Injury occurred bb in the [facility], Injury occurred: at home. Injury occurred: January 05, 2019. Trauma Activation: Alert Physician: ED Physician; Name: Ariana; Notified At: 23:40; Arrived At: 23:40 Physician: General Surgeon; Name: ; Notified At: 23:40; Arrived At: Physician: Radiology; Name: ; Notified At: 23:40; Arrived At: 23:48 Physician: Respiratory; Name: ; Notified At: 23:40; Arrived At: Physician: Lab; Name: ; Notified At: 23:40; Arrived At: Historical: - Allergies: 23:54 No Known Allergies; bb - Home Meds: 23:54 Metoprolol Tartrate Oral [Active]; Benicar oral oral [Active]; Nexium Oral [Active]; bb Xarelto oral oral [Active]; Breo Ellipta inhalation inhalation [Active]; oxy [Active]; - PMHx: 23:54 Hypertension; COPD; back and neck surgery; bb - PSHx: 23:54 Cholecystectomy; Appendectomy; Tonsillectomy; Hysterectomy; back and neck surgery; bb - Immunization history:: Adult Immunizations up to date, Last tetanus immunization: unknown. - Social history:: Smoking status: Patient/guardian denies using tobacco. - Ebola Screening: : No symptoms or risks identified at this time No symptoms or risks identified at this time. - Family history:: not pertinent. - Hospitalizations: : No recent hospitalization is reported. Screenin:54 Abuse screen: Denies threats or abuse. Nutritional screening: No deficits noted. ea Tuberculosis screening: No symptoms or risk factors identified. Fall Risk IV access (20 points). Primary Survey: 23:51 NO uncontrolled hemorrhage observed. A: The patient is alert. Airway: patent. ea Breathing/Chest: Respiratory pattern: regular, Respiratory effort: spontaneous, unlabored. Circulation: Skin color: pink, Skin temperature: warm. Disability Alert. Exposure/Environment: There is no evidence of uncontrolled external bleeding. Obvious injury(ies) are noted at this time: abrasion to right knee, hematoma to right eye, patient complaining of pain to right arm. 01/06 00:45 Reassessment Airway Airway Patent Breathing/Chest Respiratory pattern Regular ea Respiratory effort Spontaneous Unlabored Circulation Color [place] Temperature Warm Disability Alert. Secondary Survey: 01/05 23:53 Musculoskeletal: Swelling present in inner aspect of right eyebrow, middle aspect of ea right eyebrow, outer aspect of right eyebrow, right supraorbital ridge and right upper eyelid Reports pain in right arm. Assessment: 23:56 General: Appears uncomfortable, Behavior is appropriate for age. Pain: Complains of ea pain in right eye, right arm and right knee. Neuro: Level of Consciousness is awake, alert, obeys commands, Oriented to person, place, time, situation. Cardiovascular: Patient's skin is warm and dry. Respiratory: Airway is patent Respiratory effort is even, unlabored, Respiratory pattern is regular, symmetrical. GI: No signs and/or symptoms were reported involving the gastrointestinal system. Derm: Skin is pink, warm \T\ dry. Musculoskeletal: Swelling present in right upper eyelid. Musculoskeletal: Reports pain in right arm. Injury Description: Abrasion sustained to right knee. 01/06 00:54 Reassessment: Patient and/or family updated on plan of care and expected duration. Pain ea level reassessed. Patient is alert, oriented x 3, equal unlabored respirations, skin warm/dry/pink. 01:56 Reassessment: Patient and/or family updated on plan of care and expected duration. Pain ea level reassessed. Patient is alert, oriented x 3, equal unlabored respirations, skin warm/dry/pink. Pain has decreased. 02:31 Reassessment: Patient and/or family updated on plan of care and expected duration. Pain ea level reassessed. Patient is alert, oriented x 3, equal unlabored respirations, skin warm/dry/pink. Pt reports pain decreased. 03:56 Reassessment: Patient and/or family updated on plan of care and expected duration. Pain ea level reassessed. Patient is alert, oriented x 3, equal unlabored respirations, skin warm/dry/pink. Discharge instruction given to patient, verbalized the understanding of instruction. Pt left ED via wheelchair, accompanied by significant other, pt assisted to private vehicle, tolerated well. Vital Signs: 01/05 23:54 BP 145 / 86; Pulse 88; Resp 18 S; Temp 98(O); Pulse Ox 98% on R/A; Weight 117.93 kg bb (R); Height 5 ft. 8 in. (172.72 cm) (R); Pain 10; 01/06 00:54 BP 137 / 80; Pulse 87; Resp 18; Pulse Ox 97% on R/A; ea 01:27 BP 141 / 92; Pulse 87; Resp 20; Pulse Ox 99% on R/A; ea 02:32 BP 111 / 70; Pulse 80; Resp 18; Pulse Ox 99% on R/A; ea 03:15 Temp 97.8; ea 03:30 BP 118 / 70; Pulse 82; Resp 18; Pulse Ox 98% ; ea 01/05 23:54 Body Mass Index 39.53 (117.93 kg, 172.72 cm) bb [place] Coma Score: 01/05 23:54 Eye Response: spontaneous(4). Verbal Response: oriented(5). Motor Response: obeys rn commands(6). Total: 15. 23:55 Eye Response: spontaneous(4). Verbal Response: oriented(5). Motor Response: obeys ea commands(6). Total: 15. 09/01 00:54 Eye Response: spontaneous(4). Verbal Response: oriented(5). Motor Response: obeys ea commands(6). Total: 15. :27 Eye Response: spontaneous(4). Verbal Response: oriented(5). Motor Response: obeys ea commands(6). Total: 15. 01:38 Eye Response: spontaneous(4). Verbal Response: oriented(5). Motor Response: obeys rn commands(6). Total: 15. 02:32 Eye Response: spontaneous(4). Verbal Response: oriented(5). Motor Response: obeys ea commands(6). Total: 15. 03:30 Eye Response: spontaneous(4). Verbal Response: oriented(5). Motor Response: obeys ea commands(6). Total: 15. Trauma Score (Adult): 01/05 23:55 Eye Response: spontaneous(1); Verbal Response: oriented(1); Motor Response: obeys ea commands(2); Systolic BP: > 89 mm Hg(4); Respiratory Rate: 10 to 29 per min(4); Nicole Score: 15; Trauma Score: 12 ED Course: 23:45 Patient arrived in ED. ds1 23:[address] MD is Attending Physician. rn 23:49 Radiology exam delayed due to patient changing and going to bathroom at this time. nj 23:50 Triage completed. bb 23:51 Payton Saenz, INO is Primary Nurse. ea 23:54 Maintain EMS IV. Dressing intact. Site clean \T\ dry. Gauge \T\ site: 18 G to right hand . ea Patient maintains SpO2 saturation greater than 95% on room air. Thermoregulation: warm blanket given to patient. 23:55 Patient has correct armband on for positive identification. Bed in low position. Call ea light in reach. Side rails up X2. 23:55 Arm band placed on right wrist. Patient placed in an exam room, on a stretcher, on ea pulse oximetry. 01/06 00:[address] via stretcher. nj 00:13 Wound care: to abrasion, located on right knee was cleaned with Hibiclens, Patient rv tolerated well. 00:18 CT completed. Patient tolerated procedure well. Patient moved back from CT. nj 00:26 CT Head C Spine In Process Unspecified. EDMS 00:27 CT Facial Bones W/O Con In Process Unspecified. EDMS 00:28 X-ray completed. Portable x-ray completed in exam room. Patient tolerated procedure kw well. 00:30 XRAY Shoulder RIGHT 2 view In Process Unspecified. EDMS 03:55 No provider procedures requiring assistance completed. IV discontinued, intact, ea bleeding controlled, No redness/swelling at site. Pressure dressing applied. Administered Medications: 00:22 Drug: [place] 10 mg-325 mg 1 tabs Route: PO; ea 00:23 Follow up: Response: RASS: Restless (+1) ea 00:32 Drug: Zofran 4 mg Route: IVP; Site: right hand; ea 01:00 Follow up: Response: No adverse reaction ea 01:26 Drug: Demerol 50 mg {Note: RASS 1.} Route: IVP; Site: right hand; ea 02:32 Follow up: Response: No adverse reaction; Pain is decreased; RASS: Alert and Calm (0) ea Outcome: 03:32 Discharge ordered by . rn 03:56 Discharged to home via wheelchair, with significant other. ea 03:56 Condition: stable 03:56 Patient's length of stay in the Emergency Department was greater than 2 hours. 03:56 Discharge instructions given to patient, family, Instructed on discharge instructions, ea follow up and referral plans. Demonstrated understanding of instructions, follow-up care. 03:58 Patient left the ED. ea Signatures: Dispatcher [employer] EDAL Bouchra Ribera ds1 Tracy Gonzalez RN RN bb Nieto, Roman, MD MD rn Whitley, Kimberlee kw Jordan, Nathan nj Antunez, Elena, RN RN ea Vicente, Ronaldo, RN RN rv
--- NOTE | 2019-01-06 03:35 | EDPHYS ---
Physician Documentation [facility] Name: Rosanne Owens Age: 63 yrs Sex: Female : 1955 Arrival Date: 01/05/2019 Time: 23:45 Bed 7 Private MD: ED Physician Quan Lane HPI: 01/05 23:54 This 63 yrs old Female presents to ER via EMS with complaints of Fall. rn 23:54 The patient or guardian reports injury, pain. The complaints affect the forehead. rn Onset: The symptoms/episode began/occurred just prior to arrival. Associated signs and symptoms: Loss of consciousness: This patient did not experience any loss of consciousness. Pertinent positives: patient admits to or smells of alcohol consumption, headache, Pertinent negatives: dazed, double vision, incontinence, nausea, neck pain, seizure, shortness of breath, vomiting. Severity of symptoms: At their worst the symptoms were mild, in the emergency department the symptoms are unchanged. The patient has experienced a previous episode. Reports tripped over umbrella on floor, some ETOH on board, no LOC, takes xarelto, no vomiting, remembers all events, no focal neurological complaints. + mild headache. Scraped right knee, mild pain to right wrist. . Historical: - Allergies: 23:54 No Known Allergies; bb - Home Meds: 23:54 Metoprolol Tartrate Oral [Active]; Benicar oral oral [Active]; Nexium Oral [Active]; bb Xarelto oral oral [Active]; Breo Ellipta inhalation inhalation [Active]; oxy [Active]; - PMHx: 23:54 Hypertension; COPD; back and neck surgery; bb - PSHx: 23:54 Cholecystectomy; Appendectomy; Tonsillectomy; Hysterectomy; back and neck surgery; bb - Immunization history:: Adult Immunizations up to date, Last tetanus immunization: unknown. - Social history:: Smoking status: Patient/guardian denies using tobacco. - Ebola Screening: : No symptoms or risks identified at this time No symptoms or risks identified at this time. - Family history:: not pertinent. - Hospitalizations: : No recent hospitalization is reported. ROS: 23:54 Constitutional: Negative for fever, chills, and weight loss, Eyes: Negative for injury, rn pain, redness, and discharge, ENT: Negative for injury, pain, and discharge, Neck: Negative for injury, pain, and swelling, Cardiovascular: Negative for chest pain, palpitations, and edema, Respiratory: Negative for shortness of breath, cough, wheezing, and pleuritic chest pain, Abdomen/GI: Negative for abdominal pain, nausea, vomiting, diarrhea, and constipation, Back: Negative for injury and pain, MS/Extremity: Negative for injury and deformity, Skin: + abrasion to right knee Neuro: + headache, negative for weakness Exam: 23:54 Constitutional: This is a well developed, well nourished patient who is awake, alert, rn and in no acute distress. Head/Face: Normocephalic, + right frontal 3cm hematoma, no depression Eyes: Pupils equal round and reactive to light, extra-ocular motions intact. Lids and lashes normal. Conjunctiva and sclera are non-icteric and not injected. Cornea within normal limits. + right frontal hematoma extends to right supraorbital region with ecchymosis, no laceration ENT: NO oral trauma Neck: Trachea midline, no thyromegaly or masses palpated, and no cervical lymphadenopathy. Supple, full range of motion without nuchal rigidity, or vertebral point tenderness. No Meningismus. Chest/axilla: Normal chest wall appearance and motion. Nontender with no deformity. No lesions are appreciated. Cardiovascular: Regular rate and rhythm. No pulse deficits. Respiratory: Lungs have equal breath sounds bilaterally, clear to auscultation. No increased work of breathing, no retractions or nasal flaring. Abdomen/GI: soft, non-tender Back: No spinal tenderness. No costovertebral tenderness. Full range of motion. MS/ Extremity: + abrasion to right knee with FROM, no bony tenderness. Right wrist with FROM no deformity, NV bilateral upper extremities. Decreased ROM right shoulder (baseline and has rotator cuff surgery scheduled). Neuro: Awake and alert, GCS 15, oriented to person, place, time, and situation. Cranial nerves II-XII grossly intact. Motor strength 5/5 in all extremities. Sensory grossly intact. Cerebellar exam normal. Vital Signs: 23:54 BP 145 / 86; Pulse 88; Resp 18 S; Temp 98(O); Pulse Ox 98% on R/A; Weight 117.93 kg bb (R); Height 5 ft. 8 in. (172.72 cm) (R); Pain 02/14; 01/06 00:54 BP 137 / 80; Pulse 87; Resp 18; Pulse Ox 97% on R/A; ea 01:27 BP 141 / 92; Pulse 87; Resp 20; Pulse Ox 99% on R/A; ea 02:32 BP 111 / 70; Pulse 80; Resp 18; Pulse Ox 99% on R/A; ea 03:15 Temp 97.8; ea 03:30 BP 118 / 70; Pulse 82; Resp 18; Pulse Ox 98% ; ea 01/05 23:54 Body Mass Index 39.53 (117.93 kg, 172.72 cm) bb Nicole Coma Score: 01/05 23:54 Eye Response: spontaneous(4). Verbal Response: oriented(5). Motor Response: obeys rn commands(6). Total: 15. 23:55 Eye Response: spontaneous(4). Verbal Response: oriented(5). Motor Response: obeys ea commands(6). Total: 15. 01/06 00:54 Eye Response: spontaneous(4). Verbal Response: oriented(5). Motor Response: obeys ea commands(6). Total: 15. 01:27 Eye Response: spontaneous(4). Verbal Response: oriented(5). Motor Response: obeys ea commands(6). Total: 15. 01:38 Eye Response: spontaneous(4). Verbal Response: oriented(5). Motor Response: obeys rn commands(6). Total: 15. 02:32 Eye Response: spontaneous(4). Verbal Response: oriented(5). Motor Response: obeys ea commands(6). Total: 15. 03:30 Eye Response: spontaneous(4). Verbal Response: oriented(5). Motor Response: obeys ea commands(6). Total: 15. Trauma Score (Adult): 01/05 23:55 Eye Response: spontaneous(1); Verbal Response: oriented(1); Motor Response: obeys ea commands(2); Systolic BP: > 89 mm Hg(4); Respiratory Rate: 10 to 29 per min(4); [place] Score: 15; Trauma Score: 12 MDM: 23:45 Patient medically screened. rn 01/06 01:33 ED course: Pt states forgot xarelto at home, and just visiting, so off of xarelto for rn 24 hours. . 01:38 Differential diagnosis: Contusion of Hematoma on Intracranial bleed- Concussion rn cerebral contusion. Data reviewed: vital signs, nurses notes, radiologic studies, CT scan, plain films, and as a result, I will continue to observe the patient. Counseling: I had a detailed discussion with the patient and/or guardian regarding: the historical points, exam findings, and any diagnostic results supporting the discharge/admit diagnosis, radiology results. Special discussion: Based on the patient's history, exam and DX evaluation, there is no indication for emergent intervention or inpatient TX. It is understood by the patient/guardian that if the SXs persist or worsen they need to return immediately for re-evaluation. 03:09 ED course: secondary and tertiary surveys do not reveal any new findings. Sleeping rn comfortably.. 01/05 23:46 Order name: CT Head C Spine rn 01/05 23:46 Order name: CT Facial Bones W/O Con rn 01/06 00:14 Order name: XRAY Shoulder RIGHT 2 view rn Administered Medications: 00:22 Drug: [place] 10 mg-325 mg 1 tabs Route: PO; ea 00:23 Follow up: Response: RASS: Restless (+1) ea 00:32 Drug: Zofran 4 mg Route: IVP; Site: right hand; ea 01:00 Follow up: Response: No adverse reaction ea 01:26 Drug: Demerol 50 mg {Note: RASS 1.} Route: IVP; Site: right hand; ea 02:32 Follow up: Response: No adverse reaction; Pain is decreased; RASS: Alert and Calm (0) ea Disposition: 01/06/19 03:32 Discharged to Home. Impression: Superficial injury of head, Contusion of right knee, Contusion of right wrist. - Condition is Stable. - Discharge Instructions: Contusion, Head Injury, Adult, Hematoma. - Medication Reconciliation Form, Thank You Letter, Antibiotic Education, Prescription Opioid Use form. - Follow up: Private Physician; When: As needed; Reason: Recheck today's complaints, Re-evaluation by your physician. - Problem is new. - Symptoms have improved. Signatures: Dispatcher [employer] EDMS Tracy Gonzalez RN RN bb Nieto, Roman, MD MD rn Antunez, Elena, RN RN ea Corrections: (The following items were deleted from the chart) 00:16 00:16 Shoulder Right 2 View+[email or web address] ordered. EDMS EDMS 03:58 03:32 01/06/2019 03:32 Discharged to Home. Impression: Superficial injury of head; ea Contusion of right knee; Contusion of right wrist. Condition is Stable. Forms are Medication Reconciliation Form, Thank You Letter, Antibiotic Education, Prescription Opioid Use. Follow up: Private Physician; When: As needed; Reason: Recheck today's complaints, Re-evaluation by your physician. Problem is new. Symptoms have improved. rn
--- NOTE | 2019-01-06 11:30 | RAD REPORT ---
EXAM DESCRIPTION: RAD - Shoulder Right 2 View - 01/06/2019 12:31 am CLINICAL HISTORY: Right shoulder pain status post fall FINDINGS: No fracture or dislocation is seen.
--- NOTE | 2019-01-07 10:59 | RAD REPORT ---
EXAM DESCRIPTION: CT - Head C Spine Mpr Wo Con - 01/06/2019 6:40 am ADDENDUM #1 CT cervical spine: No evidence for an acute fracture of the cervical spine. No subluxation. There are ACDF changes from C5 through C7. There is fusion of the vertebral bodies of C5-C7. Metallic surgical device in the ante rior disc space at C4-C5 demonstrated extending into the C4-C5 vertebral bodies. There are multiple d egenerative changes with multilevel neuroforaminal and central canal narrowing. There is a 2 cm hypod ensity in the left thyroid lobe which could represent a cyst or nodule; nonemergent follow-up with ul anupam is recommended. IMPRESSION: 1. No evidence for an acute fracture of the cervical spine. 2. Cervical spine degenerative and postoperative changes. 3. Left thyroid lobe 2 cm cyst versus nodule, nonemergent follow-up with ultrasound recommended. Electronically signed by: Austin Diego MD 01/06/2019 3:25 AM CDT End of Addendum EXAM DESCRIPTION: Head C Spine Mpr Wo Con (accession [id number]), Facial Bones W/ Mpr (accession [id number]) CLINICAL HISTORY: 63-year-old female status post fall on Xeralto. COMPARISON: None. TECHNIQUE: CT brain without contrast. This exam was performed according to our departmental dose opt imization program which includes use of automated exposure control, adjustment of the mA and/or kV ac cording to patient size and/or use of iterative reconstruction technique. FINDINGS: Brain: The ventricles, sulci, and cisterns are symmetric and unremarkable. The berg-white matter different iation is preserved. There is no mass effect, midline shift, intra- or extra-axial fluid collection /acute hemorrhage. Maxillofacial: The anterior/posterior ethmoids, sphenoid sinuses, and maxillary sinuses reveal mucosal thickening. T he frontal sinuses are undeveloped. The osteomeatal complexes are patent. The nasal turbinates and nasal septum are normal. The cribrif orm plate and lamina papyraceae within normal limits. The osseous structures revealed degenerative change of the cervical spine. The orbits are unremarkable. The optic nerves and globes appear intact. The LEFT periorbital soft tis sues show no evidence of inflammation. Large RIGHT periorbital hematoma and swelling measuring up to 13 mm in thickness. IMPRESSION: 1. No acute intracranial abnormalities. 2. Large RIGHT periorbital hematoma and swelling. Electronically signed by: Avis Haynes MD 01/06/2019 12:47 AM CDT Due to temporary technical issues with the PACS/Fluency reporting system, reports are being signed by the in house radiologist as a courtesy to ensure prompt reporting. The interpreting radiologist is f ully responsible for the content of the report.
--- NOTE | 2019-01-07 11:03 | RAD REPORT ---
EXAM DESCRIPTION: CT - Facial Bones W/ Mpr - 01/06/2019 6:41 am ADDENDUM #1 CT cervical spine: No evidence for an acute fracture of the cervical spine. No subluxation. There are ACDF changes from C5 through C7. There is fusion of the vertebral bodies of C5-C7. Metallic surgical device in the ante rior disc space at C4-C5 demonstrated extending into the C4-C5 vertebral bodies. There are multiple d egenerative changes with multilevel neuroforaminal and central canal narrowing. There is a 2 cm hypod ensity in the left thyroid lobe which could represent a cyst or nodule; nonemergent follow-up with ul trasomariam is recommended. IMPRESSION: 1. No evidence for an acute fracture of the cervical spine. 2. Cervical spine degenerative and postoperative changes. 3. Left thyroid lobe 2 cm cyst versus nodule, nonemergent follow-up with ultrasound recommended. Electronically signed by: Austin Diego MD 01/06/2019 3:25 AM CDT End of Addendum EXAM DESCRIPTION: Head C Spine Mpr Wo Con (accession [id number]), Facial Bones W/ Mpr (accession [id number]) CLINICAL HISTORY: 63-year-old female status post fall on Xeralto. COMPARISON: None. TECHNIQUE: CT brain without contrast. This exam was performed according to our departmental dose opt imization program which includes use of automated exposure control, adjustment of the mA and/or kV ac cording to patient size and/or use of iterative reconstruction technique. FINDINGS: Brain: The ventricles, sulci, and cisterns are symmetric and unremarkable. The berg-white matter different iation is preserved. There is no mass effect, midline shift, intra- or extra-axial fluid collection /acute hemorrhage. Maxillofacial: The anterior/posterior ethmoids, sphenoid sinuses, and maxillary sinuses reveal mucosal thickening. T he frontal sinuses are undeveloped. The osteomeatal complexes are patent. The nasal turbinates and nasal septum are normal. The cribrif orm plate and lamina papyraceae within normal limits. The osseous structures revealed degenerative change of the cervical spine. The orbits are unremarkable. The optic nerves and globes appear intact. The LEFT periorbital soft tis sues show no evidence of inflammation. Large RIGHT periorbital hematoma and swelling measuring up to 13 mm in thickness. IMPRESSION: 1. No acute intracranial abnormalities. 2. Large RIGHT periorbital hematoma and swelling. Electronically signed by: Avis Haynes MD 01/06/2019 12:47 AM CDT Due to temporary technical issues with the PACS/Fluency reporting system, reports are being signed by the in house radiologist as a courtesy to ensure prompt reporting. The interpreting radiologist is f ully responsible for the content of the report.
== END 2019-01-06 03:58 | disposition home or self-care (01) ==
LOC: ER 23:43
DX: S00.90XA Unspecified superficial injury of unspecified part of head, initial encounter (principal); S80.01XA Contusion of right knee, initial encounter; S60.211A Contusion of right wrist, initial encounter; W18.30XA Fall on same level, unspecified, initial encounter; Y93.9 Activity, unspecified; Y92.9 Unspecified place or not applicable
CPT/HCPCS: 70450; 72125; 70486; 76377; 73030; 96375; 96374; 99285; J2175; J2405